=== PATIENT | female | born 1985 | race Two or more races ===

== ENCOUNTER → 2020-08-24 08:20 | Outpatient (BNVA) | payer OTHER, SELFPAY | PROVIDERS: PCP Physician Assistant Medical; Visit Provider Surgery | DX: Z01.818 Encounter for other preprocedural examination (principal); E66.01 Morbid (severe) obesity due to excess calories; R06.02 Shortness of breath; Z68.42 Body mass index [BMI] 45.0-49.9, adult | CPT/HCPCS: 99202 ==

== ENCOUNTER 2020-08-29 16:02 | Outpatient (REF) | payer OTHER, SELFPAY ==
[2020-08-31 14:07] LABS: H Pylori Breath Test NOT DETECTED (NOT DETECTED)
== END 2020-08-29 16:03 | disposition home or self-care (01) ==
LOC: HO.LNP 16:02
PROVIDERS: Surgery; Visit Provider Physician Assistant
DX: Z11.0 Encounter for screening for intestinal infectious diseases (principal)
CPT/HCPCS: 83013; 99211

== ENCOUNTER 2020-09-01 16:21 | Outpatient (REF) | payer OTHER, SELFPAY ==
--- NOTE | ~2020-09-01 | XR_ITS ---
EXAMINATION: XR CHEST CLINICAL INFORMATION: Shortness of breath COMPARISON: None TECHNIQUE: 2 views of the chest were obtained. FINDINGS: No significant abnormality is noted involving the heart, lungs, mediastinum, bony thorax or soft tissues. XR/XR chest 2V IMPRESSION: Unremarkable examination.
== END 2020-09-01 16:22 | disposition home or self-care (01) ==
LOC: HO.LAB 16:21
PROVIDERS: PCP Nurse Practitioner Family; Visit Provider Surgery
DX: R06.02 Shortness of breath (principal)
CPT/HCPCS: 71046

== ENCOUNTER 2020-09-04 06:36 | Outpatient (REF) | payer OTHER, SELFPAY ==
--- NOTE | 2020-09-04 07:17 | ECG_ITS ---
Test Reason : GASTRIC SURGERY Blood Pressure : / mmHG Vent. Rate : 052 BPM Atrial Rate : 052 BPM P-R Int : 176 ms QRS Dur : 078 ms QT Int : 440 ms P-R-T Axes : 049 017 031 degrees QTc Int : 409 ms Sinus bradycardia with sinus arrhythmia Otherwise normal ECG No previous ECGs available Referred By: Jael Prince Electronically Signed By:LORENA NEWSOME MD
[2020-09-04 07:42] LABS: MANUAL DIFF FLAG NO
[2020-09-04 07:46] LABS: Basophils Percent Auto 0.5 % (0-2); Eosinophils Absolute Auto 0.2 X10*3/uL (0.0-0.4); Eosinophils Percent Auto 2.2 % (0-4); Hemoglobin 11.9 g/dl (12.0-16.0); Imm Gran Abs Auto 0.03 X10*3/uL (0.00-0.03); Imm Gran Pct Auto 0.4 % (0.0-0.4); Lymphocytes Absolute Auto 3.1 X10*3/uL (1.2-4.9); Lymphocytes Percent Auto 38.4 % (20-40); Mean Corpuscular HGB Conc 32.2 g/dl (31.0-35.0); Mean Corpuscular Hemoglobin 27.6 pg (27.0-33.0); Mean Corpuscular Volume 85.8 fL (80-98); Mean Platelet Volume 8.7 fL (9.4-12.3); Monocytes Absolute Auto 0.4 X10*3/uL (0.1-1.2); Monocytes Percent Auto 5.2 % (2-11); Neutrophils Absolute Auto 4.3 X10*3/uL (2.0-8.3); Neutrophils Percent Auto 53.3 % (45-73); Platelet Count 332 X10*3/uL (160-400); Red Blood Count 4.31 X10*6/uL (4.20-5.50); Red Cell Distribution Width 13.8 % (11.0-16.0)
[2020-09-04 08:06] LABS: Estimated Average Glucose 103 mg/dL; Hemoglobin A1c % 5.2 %
[2020-09-04 08:07] LABS: Alanine Aminotransferase 9 U/L (0-31); Albumin Level 4.3 g/dL (3.5-5.0); Alkaline Phosphatase 78 U/L (39-117); Anion Gap 14 (12-20); Aspartate Amino Transferase 16 U/L (5-31); Bilirubin Total 0.3 mg/dL (0.0-1.0); Blood Urea Nitrogen 17 mg/dL (9-16); C Reactive Protein 0.34 mg/dL (< or = 0.50); Calcium 9.4 mg/dL (8.4-10.2); Carbon Dioxide 23 mmol/L (22-29); Chloride 106 mmol/L (96-108); Cholesterol 192 mg/dL; Estimated Glomerular Filt Rate > 60; Glucose Fasting 90 mg/dL (60-99); HDL Cholesterol 47 mg/dL; Iron 27 mcg/dL (30-160); LDL Cholesterol Calculated 133 mg/dl; Percent Iron Saturation 7 % (15-50); Potassium 4.2 mmol/L (3.3-5.1); Sodium 139 mmol/L (135-145); Total Iron Binding Capacity 388 mcg/dL (228-428); Total Protein 7.6 g/dL (6.5-8.0); Triglycerides 63 mg/dL; Unsaturated Iron Binding 361 ug/dL
[2020-09-04 08:30] LABS: Thyroid Stimulating Hormone 0.65 uIU/mL (0.32-4.0); Vitamin D 25-OH Total 13.7 ng/mL (>30)
[2020-09-04 09:27] LABS: Vitamin B12 408 pg/mL (200-900)
[2020-09-05 16:52] LABS: Calcium (PTHI) 9.4 mg/dL (8.6-10.2); PTHI 62 pg/mL (14-64)
[2020-09-06 15:46] LABS: Zinc 71 mcg/dL (60-130)
[2020-09-07 17:06] LABS: Vitamin A 34 mcg/dL (38-98)
[2020-09-08 12:46] LABS: Vitamin B1 10 nmol/L (8-30)
== END 2020-09-04 06:37 | disposition home or self-care (01) ==
LOC: HO.LAB 06:36
PROVIDERS: PCP Nurse Practitioner Family; Visit Provider Surgery
DX: Z01.818 Encounter for other preprocedural examination (principal); K91.2 Postsurgical malabsorption, not elsewhere classified; R06.02 Shortness of breath; Z90.3 Acquired absence of stomach [part of]
CPT/HCPCS: 36415; 80053; 80061; 82306; 82607; 83036; 83540; 83970; 84425; 84443; 84590; 84630; 85025; 86140; 93005

== ENCOUNTER → 2020-09-07 08:18 | Outpatient (BNVA) | payer OTHER, SELFPAY | PROVIDERS: Visit Provider Surgery ==

== ENCOUNTER → 2020-09-13 09:46 | Outpatient (BNVA) | payer OTHER, SELFPAY | PROVIDERS: Visit Provider Internal Medicine Cardiovascular Disease | DX: R07.9 Chest pain, unspecified (principal); R06.02 Shortness of breath | CPT/HCPCS: 93005; 99202 ==

== ENCOUNTER → 2020-10-19 16:18 | Outpatient (BNVA) | payer OTHER, SELFPAY | PROVIDERS: Visit Provider Physician Assistant | DX: E66.01 Morbid (severe) obesity due to excess calories (principal); R07.9 Chest pain, unspecified; Z68.41 Body mass index [BMI] 40.0-44.9, adult | CPT/HCPCS: 99212 ==

== ENCOUNTER → 2020-10-24 07:52 | Outpatient (REF) | payer OTHER, SELFPAY ==
--- NOTE | 2020-10-24 07:54 | CA_ITS ---
Acquisition Time: 2020-10-24 07:54:13 Total Exercise Time: 00:06:07 Test Indications: Chest Pain Medications: PRO AIR OMEPRAZOLE GABAPENTIN CLONAZAPAM Protocol: LORI Max HR: 176 BPM 96% of Pred: 183 BPM Max BP: 128/088 mmHG Max Work Load: 7.1 METS Exercise stress test with exercise 6 min 7 sec of Lori protocol, without anginal symptoms, with isolated PACs in recovery, with normotensive response exercise, without EKG changes meeting criteria for ischemia. Test reviewed with Dr Ramírez Referred By: Leon Go Overread By: DAISY SHAY
== END ==
LOC: HO.CARD 07:52
PROVIDERS: Visit Provider Internal Medicine Cardiovascular Disease
DX: R07.9 Chest pain, unspecified (principal)
CPT/HCPCS: 93017

== ENCOUNTER → 2020-10-31 15:58 | Outpatient (BNVA) | payer OTHER, SELFPAY | PROVIDERS: Referring Provider Nurse Practitioner Family; Visit Provider Surgery | DX: E66.01 Morbid (severe) obesity due to excess calories (principal); Z68.41 Body mass index [BMI] 40.0-44.9, adult | CPT/HCPCS: 99212 ==

== ENCOUNTER 2020-11-03 16:17 | Outpatient (REF) | payer OTHER, SELFPAY ==
[2020-11-03 16:56] LABS: Iron 34 mcg/dL (30-160); Percent Iron Saturation 9 % (15-50); Total Iron Binding Capacity 392 mcg/dL (228-428); Unsaturated Iron Binding 358 ug/dL
[2020-11-03 17:16] LABS: Vitamin D 25-OH Total 28.2 ng/mL (>30)
[2020-11-08 13:17] LABS: Vitamin A 36 mcg/dL (38-98)
== END 2020-11-03 16:18 | disposition home or self-care (01) ==
LOC: HO.LAB 16:17
PROVIDERS: PCP Nurse Practitioner Family; Visit Provider Surgery
DX: Z01.818 Encounter for other preprocedural examination (principal); E55.9 Vitamin D deficiency, unspecified; E50.9 Vitamin A deficiency, unspecified; E61.1 Iron deficiency
CPT/HCPCS: 36415; 82306; 83540; 84590

== ENCOUNTER 2020-11-03 16:32 | Emergency (ER) | payer OTHER, SELFPAY ==
--- NOTE | ~2020-11-03 | XR_ITS ---
EXAMINATION: XR CHEST CLINICAL INFORMATION: Chest pain COMPARISON: 09/01/2020 TECHNIQUE: Frontal view of the chest was obtained. FINDINGS: No significant abnormality is noted involving the heart, lungs, mediastinum, bony thorax or soft tissues. XR/XR chest 1V IMPRESSION: Unremarkable examination.
[2020-11-03 16:34] VITALS: BP 122/73; PULSE 73; RESP 18; TEMP 36.3; O2SAT 100; BMI 40.6
--- NOTE | 2020-11-03 16:38 | ECG_ITS ---
Test Reason : CHEST PAIN Blood Pressure : / mmHG Vent. Rate : 061 BPM Atrial Rate : 061 BPM P-R Int : 180 ms QRS Dur : 078 ms QT Int : 412 ms P-R-T Axes : 048 009 019 degrees QTc Int : 414 ms Sinus rhythm with Premature supraventricular complexes Otherwise normal ECG When compared with ECG of 04-SEP-2020 06:26, Premature supraventricular complexes are now Present Referred By: Generic ED Physician Electronically Signed By:Leon Go
--- NOTE | 2020-11-03 18:39 | ED.CHESTPAIN ---
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 had a stress test on 10/24 which was negative comes here for pain started again today localized to left chest increases on palpation and movements going to the left trapezius area tender to touch no shortness of breath Related Data Home Medications Medication Instructions Recorded Confirmed acetaminophen 325 mg capsule 325 mg PO QID PRN 08/24/20 10/31/20 albuterol sulfate 90 mcg/actuation 2 puff INHALATION Q6H PRN 08/24/20 10/31/20 aerosol inhaler clonazepam 0.5 mg tablet 0.25 mg PO BEDTIME 08/24/20 10/31/20 ibuprofen 600 mg tablet 600 mg PO Q8H PRN 08/24/20 10/31/20 zolpidem 5 mg tablet 5 mg PO BEDTIME PRN 08/24/20 10/31/20 omeprazole 10 mg capsule,delayed 10 mg PO DAILY PRN 10/31/20 10/31/20 release Previous Rx's Medication Instructions Recorded vitamin A palmitate 10,000 unit 20,000 unit PO DAILY 30 Days #60 09/08/20 tablet tab tramadol 50 mg PO Q6H PRN #20 tab 11/03/20 Allergies Allergy/AdvReac Type Severity Reaction Status Date / Time shellfish derived Allergy Severe Anaphylaxis Verified 11/03/20 16:33 Review of Systems Review of Systems: Constitutional : No Weight loss, No Fever, No Chills ENT/Mouth : No sore throat, No Rhinorrhea Eyes: No Eye Pain, No Swelling Cardiovascular : + Chest Pain, no palpitations Respiratory : No Cough, No Sputum, no shortness of breath Gastrointestinal : no Nausea, No Vomiting, No Diarrhea, No abdominal Pain, no black stools Genitourinary : No Dysuria, No Urinary Frequency Musculoskeletal : No joint pain, No Myalgias, No Joint Swelling Skin : No Skin Lesions, No rash Neuro : No Weakness, No Numbness, No Dizziness, No Headache Psych : No Anxiety/Panic, No Depression Heme/Lymph: No Bruising, No Lymphadenopathy Endocrine : No Polyuria, No Polydipsia All other systems reviewed and are negative PMFSH Past Medical History Medical History Anxiety Asthma Depression Insomnia Migraines Morbid obesity due to excess calories Pre-diabetes Surgical History History of tubal ligation Hx of section Hx of cholecystectomy Family History Family History Mother Cancer Hypertension Father No problems noted. Brother No problems noted. Brother Heart disease Sister No problems noted. Sister No problems noted. Son Asthma Son Asthma Daughter Asthma Social History Social History Alcohol intake: current Alcohol intake frequency: holidays/special occasions only Patient Tobacco Use Status: Former Tobacco user Years Smoked: 20 Advance Directives: Yes Advance Directives Information Provided: Yes Advance Directives on File: No Patient : No Physical Exam Vital Signs: Vital Signs: Last Vital Signs Temp 97.4 F 11/03/20 16:34 Pulse 73 11/03/20 16:34 Resp 18 11/03/20 16:34 BP 122/73 11/03/20 16:34 Pulse Ox 100 11/03/20 16:34 Body Mass Index 40.6 Appearance: Alert. Oriented X3. No acute distress. Eyes: PERRLA, No Nystagmus ENT: Pharynx normal. Oral Mucosa moist Neck: Normal inspection. Neck supple. CVS: Normal heart rate and rhythm. Pulses normal. Left chest wall tenderness left trapezius tenderness Respiratory: No respiratory distress. Equal air entry bilateral, no wheezing/rales/rhonchi Abdomen: Soft and nontender. Bowel sounds are present, no mass palpable, no CVA tenderness Skin: Skin warm and dry. Normal skin color. Normal skin turgor. Extremities: No lower extremity edema. No calf tenderness Neuro: Oriented X 3. No motor deficit. No sensory deficit. MDM - Chest Pain ECG Data ECG #1: Attestation: I personally reviewed and interpreted this ECG as follows: Interpretation: Heart rate 61 beats per minute few PACs no acute ST T wave changes normal interval normal axis impression no acute ischemia Discharge Plan Discharge Clinical Impression: Musculoskeletal chest pain Patient Disposition: Home, Self-Care Instructions: Musculoskeletal Pain (ED) Additional Instructions: Your chest pain is not from the heart is likely musculoskeletal take ibuprofen/tramadol for pain Prescriptions: New tramadol 50 mg tablet 50 mg PO Q6H PRN (Reason: pain) Qty: 20 RF: 0 No Action vitamin A palmitate 10,000 unit tablet 20,000 unit PO DAILY 30 Days Qty: 60 RF: 0 clonazepam 0.5 mg tablet 0.25 mg PO BEDTIME RF: 0 zolpidem [Ambien] 5 mg tablet 5 mg PO BEDTIME PRNRF: 0 ibuprofen 600 mg tablet 600 mg PO Q8H PRNRF: 0 acetaminophen [Tylenol] 325 mg capsule 325 mg PO QID PRNRF: 0 albuterol sulfate [ProAir HFA] 90 mcg/actuation HFA aerosol inhaler 2 puff inhalation Q6H PRNRF: 0 omeprazole 10 mg capsule,delayed release(DR/EC) 10 mg PO DAILY PRNRF: 0
[2020-11-03] MEDS: traMADoL HCL 50 MG TABLET PO (19:03)
== END 2020-11-03 19:10 | disposition home or self-care (01) ==
PROVIDERS: Emergency Provider Internal Medicine; PCP Nurse Practitioner Family
DX: R07.89 Other chest pain (principal); J45.909 Unspecified asthma, uncomplicated; Z79.899 Other long term (current) drug therapy
CPT/HCPCS: 71045; 93005; 99283

== ENCOUNTER → 2020-11-06 15:01 | Outpatient (BNVA) | payer OTHER, SELFPAY | PROVIDERS: PCP Nurse Practitioner Family; Visit Provider Internal Medicine Cardiovascular Disease | DX: R07.9 Chest pain, unspecified (principal) | CPT/HCPCS: 99212 ==

== ENCOUNTER → 2020-11-23 16:02 | Outpatient (BNVA) | payer OTHER, SELFPAY | PROVIDERS: Referring Provider Nurse Practitioner Family; Visit Provider Surgery | DX: E66.9 Obesity, unspecified (principal); Z68.39 Body mass index [BMI] 39.0-39.9, adult | CPT/HCPCS: 99212 ==

== ENCOUNTER 2020-12-21 15:57 | Outpatient (REF) | payer OTHER, SELFPAY ==
[2020-12-26 18:26] LABS: Vitamin A 36 mcg/dL (38-98)
== END 2020-12-21 15:58 | disposition home or self-care (01) ==
LOC: HO.LAB 15:57
PROVIDERS: Visit Provider Surgery
DX: Z01.818 Encounter for other preprocedural examination (principal); E50.9 Vitamin A deficiency, unspecified; E66.9 Obesity, unspecified; Z68.38 Body mass index [BMI] 38.0-38.9, adult
CPT/HCPCS: 36415; 84590; 99212

== ENCOUNTER → 2020-12-27 08:09 | Outpatient (BNVA) | payer OTHER, SELFPAY | PROVIDERS: Visit Provider Dietitian, Registered | DX: E66.9 Obesity, unspecified (principal); Z68.38 Body mass index [BMI] 38.0-38.9, adult | CPT/HCPCS: 97802 ==

== ENCOUNTER → 2020-12-29 15:57 | Outpatient (BNVA) | payer OTHER, SELFPAY | PROVIDERS: Visit Provider Surgery ==

== ENCOUNTER → 2021-01-25 15:58 | Outpatient (BNVA) | payer OTHER, SELFPAY | PROVIDERS: Referring Provider Physician Assistant Medical; Visit Provider Surgery | DX: Z01.818 Encounter for other preprocedural examination (principal); E66.9 Obesity, unspecified; Z68.38 Body mass index [BMI] 38.0-38.9, adult | CPT/HCPCS: 99212 ==

== ENCOUNTER → 2021-01-26 08:58 | Outpatient (BNVA) | payer OTHER, SELFPAY | PROVIDERS: Visit Provider Physician Assistant ==

== ENCOUNTER 2021-01-31 07:23 | Inpatient (IN) | payer OTHER, SELFPAY ==
--- NOTE | 2021-01-26 11:13 | ECG_ITS ---
Test Reason : preop Blood Pressure : / mmHG Vent. Rate : 060 BPM Atrial Rate : 060 BPM P-R Int : 170 ms QRS Dur : 078 ms QT Int : 402 ms P-R-T Axes : 062 023 048 degrees QTc Int : 402 ms Normal sinus rhythm with sinus arrhythmia Normal ECG When compared with ECG of 03-NOV-2020 18:05, Premature supraventricular complexes are no longer Present Referred By: Jael Prince Electronically Signed By:CRISTOPHER BABIN
[2021-01-26 12:10] LABS: MANUAL DIFF FLAG NO
[2021-01-26 12:14] LABS: Basophils Percent Auto 0.4 % (0-2); Eosinophils Absolute Auto 0.2 X10*3/uL (0.0-0.4); Eosinophils Percent Auto 1.9 % (0-4); Hematocrit 36.3 % (37-47); Hemoglobin 11.6 g/dl (12.0-16.0); Imm Gran Abs Auto 0.03 X10*3/uL (0.00-0.03); Imm Gran Pct Auto 0.3 % (0.0-0.4); Lymphocytes Absolute Auto 3.8 X10*3/uL (1.2-4.9); Lymphocytes Percent Auto 40.3 % (20-40); Mean Corpuscular Hemoglobin 27.8 pg (27.0-33.0); Mean Corpuscular Volume 87.1 fL (80-98); Mean Platelet Volume 8.6 fL (9.4-12.3); Monocytes Absolute Auto 0.5 X10*3/uL (0.1-1.2); Monocytes Percent Auto 5.5 % (2-11); Neutrophils Absolute Auto 4.8 X10*3/uL (2.0-8.3); Neutrophils Percent Auto 51.6 % (45-73); Platelet Count 309 X10*3/uL (160-400); Red Blood Count 4.17 X10*6/uL (4.20-5.50); Red Cell Distribution Width 13.9 % (11.0-16.0); White Blood Count 9.4 X10*3/uL (4.8-10.8)
[2021-01-26 12:29] LABS: Prothrombin Time 11.4 SEC (9.9-13.0)
[2021-01-26 12:32] LABS: Partial Thromboplastin Time 31.7 SEC (24.1-38.0)
[2021-01-26 13:27] LABS: Albumin Level 4.1 g/dL (3.5-5.0); Anion Gap 11 (12-20); Blood Urea Nitrogen 10 mg/dL (9-16); Calcium 9.5 mg/dL (8.4-10.2); Carbon Dioxide 26 mmol/L (22-29); Chloride 103 mmol/L (96-108); Estimated Glomerular Filt Rate > 60; Glucose Random 85 mg/dL (60-115); Potassium 3.8 mmol/L (3.3-5.1); Sodium 136 mmol/L (135-145)
[2021-01-26 14:19] LABS: Appearance Urine CLEAR; Color Urine YELLOW; Glucose Urine UA NEG (NEG); Leukocyte Esterase Urine NEG (NEG); Nitrite Urine NEG (NEG); Specific Gravity - Urine >= 1.030 (1.005-1.025); Urine Blood NEG (NEG); Urine Ketones NEG (NEG); Urine Protein NEG (NEG-TRACE)
[2021-01-26 14:22] LABS: UPreg QC Valid YES; Urine Pregnancy NEGATIVE (NEGATIVE)
[2021-01-29 09:14] VITALS: BMI 38.2
--- NOTE | 2021-01-30 08:54 | HO.ANESPROP2 ---
Documented by User: Leslie Shirley NP 01/30/21 08:54 [facility] Active Problems Active Problems: All Active Problems (Updated 01/29/21 @ 09:13 by Juanita Stern RN) Preoperative examination (Acute) Shortness of breath (Acute) Body mass index (BMI) of 45.0-49.9 in adult (Acute) Iron deficiency (Acute) Vitamin D deficiency (Acute) Chest pain (Acute) BMI 40.0-44.9, adult (Acute) Vitamin A deficiency (Acute) BMI 39.0-39.9,adult (Acute) Obesity (Acute) BMI 38.0-38.9,adult (Acute) Morbid obesity due to excess calories (Acute) Depression (Acute) Anxiety (Acute) Past Medical History Medical History (Updated 01/29/21 @ 09:13 by Juanita Stern, ISABEL) Anxiety Asthma COVID-19 vaccine series completed Depression Insomnia Migraines Morbid obesity due to excess calories Pre-diabetes Family History Family History Mother Cancer Hypertension Father No problems noted. Brother No problems noted. Brother Heart disease Sister No problems noted. Sister No problems noted. Son Asthma Son Asthma Daughter Asthma Surgical History Surgical History History of tubal ligation Hx of section Hx of cholecystectomy Social History Social History Are you a primary health and social care teacher to a significant other at home: No Do you presently have visiting nurse or other home services: No Alcohol intake: former Patient Tobacco Use Status: Former Tobacco user Quit Date: 4 yrs ago Tobacco use type: Cigarette Years Smoked: 20 Use of substances other than those prescribed or required for medical reasons: No Have you been hit, kicked, punched, or otherwise hurt by someone within the past year? If so, by whom?: No Are you DNR?: No Advance Directives: No Advance Directives Information Provided: No Advance Directives on File: No Recently lost weight without trying: No How much weight loss: 34pounds or more Eating poorly because of decreased appetite: No Nutrition screen score: 4 Nutrition Risks: No Nutritional Risk Patient : No FDLMP: 01/18/21 : No Meds Allergies Allergy/AdvReac Type Severity Reaction Status Date / Time shellfish derived Allergy Severe Anaphylaxis Verified 01/29/21 09:14 Home Medications Medication Instructions Recorded Confirmed Last Taken Type acetaminophen 325 mg capsule 325 mg PO QID PRN 08/24/20 01/29/21 Unknown History (Tylenol) albuterol sulfate 90 mcg/actuation 2 puff INHALATION Q6H PRN 08/24/20 01/29/21 Unknown History aerosol inhaler (ProAir HFA) clonazepam 0.5 mg tablet 0.25 mg PO BEDTIME 08/24/20 01/29/21 Unknown History zolpidem 5 mg tablet (Ambien) 5 mg PO BEDTIME PRN 08/24/20 01/29/21 Unknown History propranolol 10 mg tablet 10 mg PO BID PRN 01/25/21 01/29/21 Unknown History Exam Exam Date and Time: January 30, 2021 0854 Height,Weight and Vital Signs: Height 5 ft 4 in Weight 101.151 kg Pertinent Lab Results Pertinent Lab Results: Laboratory Tests 01/26/21 01/26/21 01/26/21 11:11 11:11 11:11 WBC 9.4 RBC 4.17 L Hgb 11.6 L Hct 36.3 L MCV 87.1 MCH 27.8 MCHC 32.0 RDW 13.9 Plt Count 309 MPV 8.6 L Immature Gran % (Auto) 0.3 Neut % (Auto) 51.6 Lymph % (Auto) 40.3 H [place] % (Auto) 5.5 Eos % (Auto) 1.9 Baso % (Auto) 0.4 Lymph # (Auto) 3.8 [place] # (Auto) 0.5 Eos # (Auto) 0.2 Baso # (Auto) 0.0 Abs Immat Gran (auto) 0.03 Absolute Neuts (auto) 4.8 Absolute Nucleated RBC 0.000 Nucleated RBC % (auto) 0.0 PT 11.4 INR 1.0 APTT 31.7 Sodium Potassium Chloride Carbon Dioxide Anion Gap BUN Creatinine Estim Creat Clear Calc Estimated GFR Random Glucose Calcium Albumin Urine Color YELLOW Urine Appearance CLEAR Urine pH 6.0 Ur Specific [place] >= 1.030 H Urine Protein NEG Urine Glucose (UA) NEG Urine Ketones NEG Urine Blood NEG Urine Nitrite NEG Ur Leukocyte Esterase NEG Urine Test Blood Type Antibody Screen 0901/26/21 01/26/21 11:11 11:11 11:11 WBC RBC Hgb Hct MCV MCH MCHC RDW Plt Count MPV Immature Gran % (Auto) Neut % (Auto) Lymph % (Auto) [place] % (Auto) Eos % (Auto) Baso % (Auto) Lymph # (Auto) [place] # (Auto) Eos # (Auto) Baso # (Auto) Abs Immat Gran (auto) Absolute Neuts (auto) Absolute Nucleated RBC Nucleated RBC % (auto) PT INR APTT Sodium 136 Potassium 3.8 Chloride 103 Carbon Dioxide 26 Anion Gap 11 L BUN 10 Creatinine 0.80 Estim Creat Clear Calc TNP Estimated GFR > 60 Random Glucose 85 Calcium 9.5 Albumin 4.1 Urine Color Urine Appearance Urine pH Ur Specific [place] Urine Protein Urine Glucose (UA) Urine Ketones Urine Blood Urine Nitrite Ur Leukocyte Esterase Urine Test NEGATIVE Blood Type A Positive Antibody Screen NEGATIVE Narrative Narrative: EKG 01/2021 Vent. Rate : 060 BPM ? ? Atrial Rate : 060 BPM ?? P-R Int : 170 ms? QRS Dur : 078 ms ? ? QT Int : 402 ms ? ? ? P-R-T Axes : 062 023 048 degrees ?? QTc Int : 402 ms ? Normal sinus rhythm with sinus arrhythmia Normal ECG When compared with ECG of 03-NOV-2020 18:05, Premature supraventricular complexes are no longer Present ? Exercise Stress 10/2020 Exercise stress test with exercise 6 min 7 sec of Rangel protocol, without ?anginal symptoms, with isolated PACs in recovery, with normotensive response ?exercise, without EKG changes meeting criteria for ischemia. Test reviewed with ?Dr Ramírez Assessment and Plan Assessment Anesthesia Assessment: Chart Reviewed Documented by User: Connor Lamas MD 01/31/21 09:00 [facility] Past Medical History Medical History (Updated 01/29/21 @ 09:13 by Juanita Stern RN) Anxiety Asthma COVID-19 vaccine series completed Depression Insomnia Migraines Morbid obesity due to excess calories Pre-diabetes Family History Family History Mother Cancer Hypertension Father No problems noted. Brother No problems noted. Brother Heart disease Sister No problems noted. Sister No problems noted. Son Asthma Son Asthma Daughter Asthma Family history of problems with anesthesia: No Surgical History Surgical History History of tubal ligation Hx of section Hx of cholecystectomy History of Problems with Anesthesia: No Social History Social History Are you a primary health and social care teacher to a significant other at home: No Do you presently have visiting nurse or other home services: No Alcohol intake: former Patient Tobacco Use Status: Former Tobacco user Quit Date: 4 yrs ago Tobacco use type: Cigarette Years Smoked: 20 Use of substances other than those prescribed or required for medical reasons: No Have you been hit, kicked, punched, or otherwise hurt by someone within the past year? If so, by whom?: No Are you DNR?: No Advance Directives: No Advance Directives Information Provided: No Advance Directives on File: No Recently lost weight without trying: No How much weight loss: 34pounds or more Eating poorly because of decreased appetite: No Nutrition screen score: 4 Nutrition Risks: No Nutritional Risk Patient : No FDLMP: 01/18/21 : No Meds Allergies Allergy/AdvReac Type Severity Reaction Status Date / Time shellfish derived Allergy Severe Anaphylaxis Verified 01/29/21 09:14 Home Medications Medication Instructions Recorded Confirmed Last Taken Type acetaminophen 325 mg capsule 325 mg PO QID PRN 08/24/20 01/29/21 Unknown History (Tylenol) albuterol sulfate 90 mcg/actuation 2 puff INHALATION Q6H PRN 08/24/20 01/29/21 Unknown History aerosol inhaler (ProAir HFA) clonazepam 0.5 mg tablet 0.25 mg PO BEDTIME 08/24/20 01/29/21 Unknown History zolpidem 5 mg tablet (Ambien) 5 mg PO BEDTIME PRN 08/24/20 01/29/21 Unknown History propranolol 10 mg tablet 10 mg PO BID PRN 01/25/21 01/29/21 Unknown History Assessment and Plan Assessment Anesthesia Assessment: Anesthesia Plan Discussed Final Anesthetic Review Family History of Problems with Anesthesia: No History of Problems with Anesthesia: No NPO: Yes ASA Class: II Final Preanesthetic Review: No Changes in Pt Med Stat, Meds/Allgs Chart Reviewed, Consent Obtained/Reviewed and Anes Risks/Benef Reviewed Patient Risk: Intermediate Procedure Risk: Intermediate Assessment/Block/Sedation in SS: Assess/Block/Sedation-SS Anesthetic Plan Anesthetic Plan: GA and Agree w/ Assess. and Plan Disposition: Standard PACU
--- NOTE | 2021-01-30 16:33 | MHC.SHP ---
Pre-Procedural Eval Section A Date of Service: 01/30/21 Section B Chief Complaint: Obesity Allergies: Allergies Allergy/AdvReac Type Severity Reaction Status Date / Time shellfish derived Allergy Severe Anaphylaxis Verified 01/29/21 09:14 Plan I have reviewed the history and physical and performed a pertinent physical examination on my patient. No changes have occurred unless specified.
[2021-01-31] VITALS (15 sets, daily range): BP systolic 121–133; BP diastolic 60–85; PULSE 60–82; RESP 15–22; TEMP 36.1–36.7; O2SAT 98–100
[2021-01-31] MEDS: Lactated Ringers 1,000 ML 100 ML IVCONT ×3 (08:10→22:03)
[2021-01-31 08:18] LABS: COVID-19 Test Negative (Negative); IDNOW Serial# 08D9AD1C
--- NOTE | 2021-01-31 09:42 | P.OP_ITS ---
Operative Note Operative Note Date of Service: 01/31/21 Narrative: Patient was brought into the operating room and placed on the operating room table in the supine position. General anesthesia was induced. Normal DVT prophylaxis was instituted and the patient received 2 grams of cefotetan preoperatively. The abdomen was then prepped and draped in the normal sterile fashion. A safety time-out was performed. A mixture of 1% lidocaine with epinephrine and ?% Marcaine plain was used to an esthetize the planned incision site in the left upper quadrant. A #11 scalpel was used to make a 5 mm left upper quadrant transverse incision through which a veress needle was placed. Three pops were heard going through the fascia. A saline drop test was used to confirm that the veress needle was intraabdominal. An optiview technique was then used to place a 5mm port in the left upper quadrant. A 5 mm 30 degree laproscope was then placed through this port and the abdominal cavity was surveyed and was normal. The patient was placed in reverse Trendelenburg positioning. A rebecca liver retractor was then placed in the subxyphoid position and it was used to hold up the left lobe of the liver to the abdominal wall. This was secured to the bed using the liver retractor hassan. A PEYMAN block was then performed for pain control on the right side of the abdomen. A 5 mm port was placed in the right upper quadrant near the falciform ligament. A 12 mm port was then placed in the mid epigastrium. One additional 5 mm port was placed in the left upper quadrant just to the left of the placement of the first port. I then performed a PEYMAN block on the left side of the abdomen. I then removed the epigastric fat pad; there was a small anterior hiatal hernia noted. I reapproximated the left and right crura with a total of 2 stitches of 2-0 ethibond and a laparoscopic knot pusher. There was no residual hiatal hernia. I then opened up the angle of His. We then gained entry into the lesser sac about 4-5 cm from the pylorus. I had anesthesia place a 34 [place] orogastric tube into the distal antrum to use as a sizing tool for gastric pouch size. I divided the short gastric vessels up to the angle of His. We then started the creation of the gastric pouch by firing a 60 mm purple load endostapler up the stomach about 4-5 cm from the pylorus. We completed the creation of the gastric pouch using a total of 4 firings of a 60 mm purple load stapler. We had anesthesia remove the orogastric tube, then we clamped across the distal antrum using a fired 60 mm endostapler. We flattened the patient and then instilled normal saline surrounding the newly created staple line. I then performed an on-table endoscopy. I passed the gastroscopy into the posterior oropharynx and down the esophagus evaluating the esophageal mucosa which was normal. There was no evidence of hiatal hernia. I passed the gastroscope into the gastric pouch and insufflated the gastric pouch. There was healthy pink mucosa and no evidence of active bleeding. There was no evidence of leak on laparoscopy. I desufflated the gastric pouch and removed the endoscope. I removed the endostapler from the abdomen and suctioned the fluid from the left upper quadrant. I then removed the partial gastrectomy specimen through the epigastric 12 mm port site. I reapproximated the 12 mm port using a 0 maxon suture with a laparoscopic suture passer. I instilled local anesthetic into the fascial closure site and tied the suture down at a pressure of 8-10 mm of Hg. There was no residual fascial defect. We removed the liver retractor and the left upper quadrant 5 mm ports under direct visualization. There was no evidence of any active bleeding. I desufflated the abdomen through the last remaining port and removed the laparoscope and 5 mm port. We reapproximated all incisions with a 4-0 monocryl subcuticular stitch. We cleaned and dried the abdominal skin and applied dermabond skin glue. All count were correct at the end of the case. The patient was awake and in stable condition prior to extubation and transfer to the recovery room.
--- NOTE | 2021-01-31 09:42 | PM.OP ---
Brief Operative Note Date of Service: 01/31/21 Pre-op diagnosis: Class 2 obesity, BMI 38.3 Post-op diagnosis: other (Same and hiatal hernia) Procedure: Laparoscopic sleeve gastrectomy, hiatal hernia repair, Cleo block, and intraoperative endoscopy Surgeon: Jael Prince MD Anesthesia: GETA Was an Patrol Police Sergeant used for this Procedure?: No Estimated blood loss (mL): 10 Pathology: other (Partial gastrectomy) Condition: stable Disposition: PACU
--- NOTE | 2021-01-31 09:43 | PM.PNGS ---
Subjective Subjective Date of Service: 02/01/21 Interval history: This is a 35-year-old lady on postoperative day 1. Status post laparoscopic sleeve gastrectomy and hiatal hernia repair doing well. Patient has been up and ambulating use incentive spirometer. Vital signs are within normal limits as well as blood work for postoperative day 1. Patient is tolerating stage II diet without difficulty. Physical Exam Vital Signs: Vital Signs: Last Vital Signs Temp 98.1 F 01/31/21 07:47 Pulse 67 01/31/21 07:47 Resp 16 01/31/21 07:47 BP 121/60 01/31/21 07:47 Pulse Ox 99 01/31/21 07:47 Body Mass Index 38.2 Const: General: cooperative, comfortable and no acute distress GI: Other: Abdomen is soft nondistended mild appropriate incisional tenderness. Incisions are clean dry intact with Dermabond in place. There is no erythema or drainage or ecchymosis. Extrem: Other: Bilateral lower extremities are warm well-perfused without edema or tenderness to palpation. Procedures Date of Service Date of Service: 02/01/21 Progress Note: A&P Assessment and plan (1) Status post laparoscopic sleeve gastrectomy: Status: Acute Assessment and Plan: This is a 35-year-old lady doing well on postoperative day 1. Status post laparoscopic sleeve gastrectomy and hiatal hernia repair. Patient will be advanced to stage III bariatric diet. Once she is tolerating the diet she will be discharged home to follow up with me as an outpatient in 2 weeks time frame. (2) History of repair of hiatal hernia: Status: Acute (3) Obesity: Status: Acute (4) BMI 38.0-38.9,adult: Status: Acute Fall Risk Details Current Medications: Current Medications Albuterol Sulfate (Albuterol Sulfate (0.083%) 2.5 Mg/3 Ml Vial.Neb) 2.5 mg INHALE ONCE PRN PRN Reason: Shortness of Breath/Wheezing Fentanyl (Fentanyl Citrate/Pf 100 Mcg/2 Ml Vial) 50 mcg IVPUSH Q5M PRN; Protocol PRN Reason: Pain, Moderate (Pain Scale 4-6 Hydromorphone HCl (Hydromorphone Hcl 0.5 Mg/0.5 Ml Syringe) 0.5 mg IVPUSH Q5M PRN; Protocol PRN Reason: Pain, Severe (Pain Scale 7-10) Lactated Ringer's (Lr) 1,000 mls @ 100 mls/hr IVCONT .Q10H YENI Last Admin: 01/31/21 08:10 Dose: 100 mls/hr Documented by: Promethazine HCl 6.25 mg/ (Sodium Chloride) 50.25 mls @ 201 mls/hr IV ONCE PRN PRN Reason: Nausea and Vomiting Ondansetron HCl (Ondansetron Hcl 4 Mg/2 Ml Vial) 4 mg IVPUSH ONCE PRN PRN Reason: Nausea and Vomiting Oxycodone HCl (Oxycodone Hcl Immed Release 5 Mg Tablet) 10 mg PO ONCE PRN PRN Reason: Pain, Severe (Pain Scale 7-10) Time Spent With Patient Time: Total time spent is greater than 50% in coordination of care (as documented) at patient's floor/unit and/or counseling patient: Time with patient: less than 15 minutes Quality Stroke Does the patient have a stroke diagnosis?: No VTE Prior VTE?: No VTE Risk Level:: Surgical - moderate VTE Device Contraindication: N/A - Device Ordered VTE Drug Contraindication: Treatment Not Indicated
--- NOTE | 2021-01-31 09:49 | P.DS_ITS ---
DS: Providers Provider Date of Service: 01/31/21 Date of admission: 01/31/21 07:23 Date of discharge: 02/01/21 Primary care physician: DINO Escamilla Admitting clinician: Jael Prince Attending physician on admission: Jael Prince Attending physician on discharge: Jael Prince Discharging clinician: Jael Prince DS: Diagnosis Discharge Diagnosis (1) Status post laparoscopic sleeve gastrectomy: Status: Acute (2) Obesity: Status: Acute (3) BMI 38.0-38.9,adult: Status: Acute (4) History of repair of hiatal hernia: Status: Acute DS: Summary Hospital Course Hospital Course: This is a 35-year-old lady who was admitted through same-day surgery for a laparoscopic sleeve gastrectomy for weight management. Patient did well during surgery and postoperatively was sent to the surgical floor for overnight monitoring. Patient was started on stage II bariatric diet which she tolerated well. Patient was up and ambulating using the incentive spirometer as well. On postoperative day 1. The patient was noted to be doing well and was advanced to a stage III diet. Her vital signs and blood were within normal limits for postoperative day 1.. Patient was then discharged home once tolerating stage III diet. Time Spent with Patient Time attestation: Total time spent providing and/or coordinating discharge services: Discharge coordination time: Less than 30 minutes Quality: Stroke Does the patient have a stroke diagnosis?: No Physical Exam Vital Signs: Vital Signs: Last Vital Signs Temp 98.1 F 01/31/21 07:47 Pulse 67 01/31/21 07:47 Resp 16 01/31/21 07:47 BP 121/60 01/31/21 07:47 Pulse Ox 99 01/31/21 07:47 Body Mass Index 38.2 DS: Data Data Completed and Pending Labs on day of discharge: Laboratory Results - last 24 hr 01/31/21 07:24 COVID-19 ([facility]) Negative COVID-19 Clin Com See Note Discharge Plan Discharge Patient Disposition: Home, Self-Care Discharge Diagnosis: Class 2 obesity, BMI 38.3, status post sleeve gastrectomy and hiatal hernia repair Referrals: Hilda Dia PA [Primary Care Provider] - 1 Week Discharge Medications: Continued acetaminophen [Tylenol Extra Strength] 500 mg tablet 1,000 mg PO Q6H PRN (Reason: pain) Qty: 30 RF: 1 famotidine [Pepcid AC] 20 mg tablet 20 mg PO DAILY Qty: 30 RF: 1 simethicone [Gas Relief (simethicone)] 80 mg tablet,chewable 80 mg PO TID-QID PRN (Reason: abdominal distention) Qty: 30 RF: 1 ondansetron HCl [Zofran] 4 mg tablet 4 mg PO Q6H PRN (Reason: nausea and vomiting) Qty: 30 RF: 1 docusate sodium [Colace] 100 mg capsule 100 mg PO BID Qty: 30 RF: 1 propranolol 10 mg tablet 10 mg PO BID PRN (Reason: migraine headache) RF: 0 clonazepam 0.5 mg tablet 0.25 mg PO BEDTIME RF: 0 zolpidem [Ambien] 5 mg tablet 5 mg PO BEDTIME PRN (Reason: Sleep) RF: 0 acetaminophen [Tylenol] 325 mg capsule 325 mg PO QID PRN (Reason: Pain) RF: 0 albuterol sulfate [ProAir HFA] 90 mcg/actuation HFA aerosol inhaler 2 puff inhalation Q6H PRN (Reason: Wheezing) RF: 0 Discontinued vitamin A palmitate 10,000 unit tablet 20,000 unit PO DAILY 30 Days Qty: 60 RF: 0 Discharge Orders: Discharge Order (Routine); Ordered 02/01/21 Ordered By: Jael Prince Activity on Discharge: No heavy lifting Stand Alone Forms: Patient Portal Discharge page Activity Restrictions/Additional Instructions: No lifting greater than 5 lbs for the next 4 weeks. [address] driving within 24 hours of taking narcotic pain medications. If you do not move your bowels in the next 2 days, please take milk of magnesia over the counter or MiraLax. Please follow the post op diet and do not advance your diet until you are seen in the office in about 2 weeks. Please walk around your home every hour or two to prevent blood clots from forming in your legs. You do not need to wake from sleeping to walk. Please sleep in a bed or couch to prevent kinking at the hips and knees. Please take your incentive spirometer (your lung director retail brand development) home with you and use it for the next few days to prevent pneumonias. You may shower, no hot tubs, baths or swimming pools. Please call the office with any questions or concerns such as increasing abdominal pain, fever, chills, shortness of breath, chest pain, leg pain or swelling, or redness or drainage from your incisions. Please stay on stage 3 diet which includes sugar free clear liquids such as ice pops and jello and broth and crystal light. Avoid all carbonation. Please drink 2-3 protein shakes with at least 20-30 grams of protein daily or 2 of the celebrate 4:1 shakes which can be purchased in our office in addition to 1 other protein shake of your choice. celebrate shakes have all of the bariatric vitamins you need if you consume these shakes. If you are drinking other protein shakes, you will need to order the bariatric vitamin Opurity chewable online, or use the celebrate bariatric vitamin and an additional celebrate calcium daily which will provide all the vitamins you need. You may take the bariatric capsule vitamin in about 1 month. Please make sure you are consuming at least 40- 60 ounces of water in addition to your 2-3 protein shakes daily. You do not need to use the medicine cups to drink year shakes or water following discharge. Just drink slowly in order to ensure that she consume all of your liquids for the day. The medicine cups were only to teach you to drink slowly. They are not required at home. Do not hesitate to contact the office with any questions. Care Plan Goals: Achievement of BMI of 25 Health Concerns: Class 2 obesity Plan of Treatment: Status post sleeve gastrectomy Assessment: Patient is doing well
[2021-01-31] MEDS: cefoTEtan disodium 2 GM in 0.9 % Sodium Chloride 50 ML IV ×2 (10:12→21:56)
[2021-01-31] MEDS: ondansetron HCL 4 MG/2 ML VIAL IVPUSH (11:48)
[2021-01-31] MEDS: fentaNYL citrate/PF 100 MCG/2 ML VIAL 50 MCG IVPUSH ×2 (11:50→11:59)
[2021-01-31] MEDS: Metoclopramide HCl 10 MG/2 ML VIAL IVPUSH (11:53)
[2021-01-31] MEDS: Famotidine/PF 20 MG/2 ML VIAL IVPUSH ×2 (11:55→20:43)
[2021-01-31] MEDS: HYDROmorphone HCl 0.5 MG/0.5 ML SYRINGE IVPUSH ×4 (12:13→20:43)
[2021-01-31] MEDS: clonazePAM 0.5 MG TABLET 0.25 MG PO (20:44)
[2021-02-01] VITALS: BP 130/80; PULSE 71; RESP 18; TEMP 36.2; O2SAT 99
[2021-02-01 00:05] VITALS: RESP 18
[2021-02-01] MEDS: HYDROmorphone HCl 0.5 MG/0.5 ML SYRINGE IVPUSH ×2 (00:05→06:16)
[2021-02-01 04:00] VITALS: BP 141/82; PULSE 56; RESP 16; TEMP 36.3; O2SAT 100
[2021-02-01 06:09] LABS: Hematocrit 32.3 % (37-47); Hemoglobin 10.6 g/dl (12.0-16.0); Mean Corpuscular HGB Conc 32.8 g/dl (31.0-35.0); Mean Corpuscular Hemoglobin 28.2 pg (27.0-33.0); Mean Corpuscular Volume 85.9 fL (80-98); Mean Platelet Volume 8.7 fL (9.4-12.3); Platelet Count 262 X10*3/uL (160-400); Red Blood Count 3.76 X10*6/uL (4.20-5.50); Red Cell Distribution Width 13.9 % (11.0-16.0); White Blood Count 14.6 X10*3/uL (4.8-10.8)
[2021-02-01] MEDS: Lactated Ringers 1,000 ML 100 ML IVCONT (06:18)
[2021-02-01 06:25] LABS: Anion Gap 13 (12-20); Blood Urea Nitrogen 8 mg/dL (9-16); Calcium 9.2 mg/dL (8.4-10.2); Carbon Dioxide 22 mmol/L (22-29); Chloride 105 mmol/L (96-108); Creatinine Clr Calc Pharmacy 96.8; Estimated Glomerular Filt Rate > 60; Glucose Random 92 mg/dL (60-115); Potassium 4.4 mmol/L (3.3-5.1); Sodium 136 mmol/L (135-145)
[2021-02-01 07:52] VITALS: BP 143/86; PULSE 60; RESP 16; TEMP 36.7; O2SAT 100
[2021-02-01 08:00] VITALS: BP 143/56; PULSE 100; RESP 16; TEMP 36.6; O2SAT 100
[2021-02-01] MEDS: Famotidine/PF 20 MG/2 ML VIAL IVPUSH (08:43)
--- NOTE | 2021-02-01 15:11 | HO.POSTANES ---
Post Anesthesia Evaluation Post Anesthesia Evaluation Vital Signs: Vital Signs Temp Pulse Resp BP Pulse Ox 02/01/21 08:00 98 F 100 16 143/56 H 100 02/01/21 07:52 98.0 F 60 16 143/86 H 100 02/01/21 04:00 97.4 F 56 16 141/82 H 100 Anesthesia: General Endotracheal-GETA Mental Status: Awake Pain Control: Satisfactory Nausea/Vomiting: None Hydration: Adequate Anesthesia-Related Issues: No Anes. Related Issues
[2021-02-02 00:11] LABS: Vitamin A 33 mcg/dL (38-98)
== END 2021-02-01 09:44 | disposition home or self-care (01) | DRG 403 ==
LOC: HO.SSSA 07:31 → HO.S3 12:11
PROVIDERS: Admitting Provider Surgery; PCP Physician Assistant Medical; Visit Provider Surgery
PROC: 0DB64Z3 Excision of Stomach, Percutaneous Endoscopic Approach, Vertical (ICD-10-PCS; CPT 43845; principal; 2021-01-31 09:20)
DX: E66.8 Other obesity (principal); K44.9 Diaphragmatic hernia without obstruction or gangrene; Z20.822 Contact with and (suspected) exposure to COVID-19; Z68.38 Body mass index [BMI] 38.0-38.9, adult; Z87.891 Personal history of nicotine dependence; Z79.899 Other long term (current) drug therapy
CPT/HCPCS: 36415; 80048; 81003; 81025; 82040; 84590; 85025; 85027; 85610; 85730; 86850; 86900; 86901; 87635; 88307; 88342; 93005; 99024; C1776; J0131; J1100; J1170; J2250; J2405; J2550; J2765; J3010

== ENCOUNTER 2021-02-03 10:18 | Emergency (ER) | payer OTHER, SELFPAY ==
--- NOTE | ~2021-02-03 | US_ITS ---
EXAMINATION: US VENOUS ULTRASOUND WITH DOPPLER LOWER EXTREMITY, RIGHT CLINICAL INFORMATION: Postoperative pain COMPARISON: None TECHNIQUE: Ultrasound of the deep veins is performed from the hip to the calf with compression sonography and color and pulse Doppler assessment. Spectral analysis with color-flow imaging is performed. FINDINGS: There is normal venous compression and respiratory variation and augmented flow. The visualized common femoral vein, superficial femoral vein, profunda femoral vein, popliteal vein, and the trifurcation region shows no evidence of deep venous thrombosis. There is no significant popliteal fossa cyst. If the patient's symptoms persist, followup ultrasound in 5 days 7 days might be of value to exclude proximal propagation from a non-visualized calf vein. US/US venous duplex LE RT IMPRESSION: No DVT demonstrated in the right lower extremity.
[2021-02-03 10:31] VITALS: BP 127/88; PULSE 74; RESP 18; TEMP 36.6; O2SAT 100; BMI 36.4
--- NOTE | 2021-02-03 11:32 | ED.LOWEXIN ---
HPI - Extremity Injury (Lower) General Chief Complaint: Extremity Injury, Lower Stated Complaint: rt leg pain Time Seen by Provider: 02/03/21 11:29 Source: patient Mode of arrival: ambulatory Limitations: no limitations History of Present Illness HPI Narrative: 35-year-old female who is 4 days status post gastric lap band surgery, presents for right lateral calf pain that started last night. Patient notices that her right lateral calf has been red, warm, and she feels a painful lump. In addition, patient has had 3 days of back pain since her surgery. No abdominal pain, no fevers, no nausea or vomiting. No back pain red flag symptoms, and no leg weakness, no saddle paresthesias, no incontinence of bowel or bladder. Related Data Home Medications Medication Instructions Recorded Confirmed acetaminophen 325 mg capsule 325 mg PO QID PRN 08/24/20 01/29/21 (Tylenol) albuterol sulfate 90 mcg/actuation 2 puff INHALATION Q6H PRN 08/24/20 01/29/21 aerosol inhaler (ProAir HFA) clonazepam 0.5 mg tablet 0.25 mg PO BEDTIME 08/24/20 01/29/21 zolpidem 5 mg tablet (Ambien) 5 mg PO BEDTIME PRN 08/24/20 01/29/21 propranolol 10 mg tablet 10 mg PO BID PRN 01/25/21 01/29/21 Previous Rx's Medication Instructions Recorded acetaminophen 500 mg tablet 1,000 mg PO Q6H PRN #30 tab 01/25/21 (Tylenol Extra Strength) docusate sodium 100 mg capsule 100 mg PO BID #30 cap 01/25/21 (Colace) famotidine 20 mg tablet (Pepcid AC) 20 mg PO DAILY #30 tab 01/25/21 ondansetron HCl 4 mg tablet 4 mg PO Q6H PRN #30 tab 01/25/21 (Zofran) simethicone 80 mg chewable tablet 80 mg PO TID-QID PRN #30 tab 01/25/21 (Gas Relief (simethicone)) vitamin A palmitate 10,000 unit 20,000 unit PO BID 30 Days #120 tab 02/02/21 tablet cyclobenzaprine 5 mg tablet 5 mg PO TID PRN #15 tab 02/03/21 Allergies Allergy/AdvReac Type Severity Reaction Status Date / Time shellfish derived Allergy Severe Anaphylaxis Verified 01/29/21 09:14 Review of Systems Constitutional: Constitutional: Denies body ache(s), Denies chills, Denies fatigue, Denies fever(s), Denies headache(s), Denies malaise and Denies weakness Eyes: Eyes: Denies diplopia ENT: Denies vertigo, Denies dizziness, Denies otalgia, Denies headache(s), Denies mouth pain, Denies post nasal drip, Denies sinus pain, Denies sinus pressure, Denies sore throat and Denies throat swelling Cardiovascular: Cardiovascular: Denies chest pain, Denies syncope, Denies leg edema, Denies lightheadedness, Denies Loss of Consciousness, Denies palpitations and Denies dyspnea Respiratory: Respiratory: Denies chest congestion, Denies cough and Denies dyspnea Gastrointestinal: Gastrointestinal: Reports abdominal pain, Denies hematochezia, Denies constipation, Denies diarrhea and Denies vomiting Musculoskeletal: Musculoskeletal: Reports back pain Comments: right calf pain Integumentary/Breasts: Skin/Breast: Reports skin swelling Comments: warmth of right calf Neurologic: Denies confusion, Denies vertigo, Denies dizziness, Denies syncope, Denies headache(s) and Denies weakness Psychiatric: Psychiatric: Denies anxiety, Denies confusion and Denies depression Endocrine: Endocrine: Denies fatigue and Denies palpitations Allergic/Immunologic: Allergic/Immunologic: Denies throat swelling PMFSH Past Medical History Medical History Anxiety Asthma COVID-19 vaccine series completed Depression Insomnia Migraines Morbid obesity due to excess calories Pre-diabetes Surgical History History of repair of hiatal hernia History of tubal ligation Hx of section Hx of cholecystectomy Status post laparoscopic sleeve gastrectomy Family History Family History Mother Cancer Hypertension Father No problems noted. Brother No problems noted. Brother Heart disease Sister No problems noted. Sister No problems noted. Son Asthma Son Asthma Daughter Asthma Social History Social History Are you a primary respiratory care instructor to a significant other at home: No Do you presently have visiting nurse or other home services: No Alcohol intake: former Patient Tobacco Use Status: Former Tobacco user Quit Date: 4 yrs ago Tobacco use type: Cigarette Years Smoked: 20 Advance Directives: No Advance Directives Information Provided: No service: No Current occupational status: employed Physical Exam Vital Signs: Vital Signs: Last Vital Signs Temp 97.8 F 02/03/21 10:31 Pulse 74 02/03/21 10:31 Resp 18 02/03/21 10:31 BP 127/88 02/03/21 10:31 Pulse Ox 100 02/03/21 10:31 Body Mass Index 36.4 Const: General: No confusion Nutritional Appearance: well nourished Orientation/consciousness: No confusion Limitations: no limitations HENMT: Head: Yes normal to inspection, Yes normocephalic and Yes atraumatic Ears: hearing grossly normal bilaterally, external ears normal, TM's normal bilaterally and EAC's normal General nose exam: Normal external nose present Face and sinus: Yes normal facial exam and Yes sinuses nontender Mouth: Normal oral and palatal mucosa present Throat: Yes posterior oropharynx normal Eyes: Conjunctivae: conjunctivae normal Pupils: Equal, round and reactive pupils present EOM: EOMs intact bilaterally Neck: Neck: Yes full ROM, Yes no lymphadenopathy and Yes supple Resp: Effort & Inspection: normal respiratory effort and able to speak in complete sentences Auscultation: clear to auscultation bilaterally, no crackles, no rales, no rhonchi and no wheezes Cardio: Rate: regular rate Rhythm: regular rhythm Heart sounds: S1 normal heart sound present and S2 normal heart sound present GI: Inspection: Yes normal to inspection Palpation (GI): Soft to palpation, nontender, no guarding and not rigid Percussion: Yes normal to percussion Auscultation: normal bowel sounds Back/Spine/Pelvis: Other: No vertebral tenderness, patient has midthoracic left-sided Fleet tender paraspinous muscle spasm Skin: Other: No warmth appreciated right lateral calf, no redness or swelling. Patient does have very tender lump right lateral calf Neuro: General: No confusion Cranial nerves: Yes Equal, round and reactive pupils present Extrem: Other: Tenderness just below the skin surface right lateral calf Psych: Appearance: grossly normal Affect: normal affect Attitude: cooperative Thought process: Normal thought process present Course Course Course Narrative: 35-year-old female 4 days status post gastric bypass surgery presents with right lateral calf pain for DVT rule out. In addition patient has back pain for the last 3 days. Patient states that she has had chronic back pain, but it has been much worse since the surgery. On exam, patient has stable vitals, patient's right calf is not red, not warm, not swollen, but has a very tender area in her lateral calf. Patient is also point tender and paraspinous muscle left thoracic region. Gave Israeleril, getting ultrasound to r/o dvt Reevaluation(s) Reevaluation #1: Ultrasound negative for DVT. Will send pt home with Israeleril, and have her call surgeon about back pain Patient agreed she would call her surgeon today and let them know that she has no blood clot, but has the ongoing back pain. He return precautions Discharge Plan Discharge Clinical Impression: Pain of right calf, Left paraspinal back pain Patient Disposition: Home, Self-Care Instructions: Acute Low Back Pain (ED) Additional Instructions: Take the muscle relaxant every 6 hours as needed. Please take 2 extra-strength Tylenol, 1000 mg, every 8 hours, not to exceed 3000 mg in 24 hours. You can also use of warm moist towel, as we discussed, heating up a small hand towel in the microwave and applying it to her back. It is very important that you call your surgeon today and tell them that you are here in the emergency room. Your ultrasound showed that you have no blood clot in your right calf, but I do want you to tell them that you are here, and that you are experiencing the back pain. Please return to the emergency room for any new or concerning symptoms Prescriptions: New cyclobenzaprine 5 mg tablet 5 mg PO TID PRN (Reason: muscle spasm) Qty: 15 RF: 0 No Action vitamin A palmitate 10,000 unit tablet 20,000 unit PO BID 30 Days Qty: 120 RF: 0 acetaminophen [Tylenol Extra Strength] 500 mg tablet 1,000 mg PO Q6H PRN (Reason: pain) Qty: 30 RF: 1 famotidine [Pepcid AC] 20 mg tablet 20 mg PO DAILY Qty: 30 RF: 1 simethicone [Gas Relief (simethicone)] 80 mg tablet,chewable 80 mg PO TID-QID PRN (Reason: abdominal distention) Qty: 30 RF: 1 ondansetron HCl [Zofran] 4 mg tablet 4 mg PO Q6H PRN (Reason: nausea and vomiting) Qty: 30 RF: 1 docusate sodium [Colace] 100 mg capsule 100 mg PO BID Qty: 30 RF: 1 propranolol 10 mg tablet 10 mg PO BID PRN (Reason: migraine headache) RF: 0 clonazepam 0.5 mg tablet 0.25 mg PO BEDTIME RF: 0 zolpidem [Ambien] 5 mg tablet 5 mg PO BEDTIME PRN (Reason: Sleep) RF: 0 acetaminophen [Tylenol] 325 mg capsule 325 mg PO QID PRN (Reason: Pain) RF: 0 albuterol sulfate [ProAir HFA] 90 mcg/actuation HFA aerosol inhaler 2 puff inhalation Q6H PRN (Reason: Wheezing) RF: 0
[2021-02-03] MEDS: Acetaminophen 325 MG TABLET 650 MG PO (12:10)
[2021-02-03] MEDS: Cyclobenzaprine HCl 10 MG TABLET PO (12:12)
== END 2021-02-03 13:16 | disposition home or self-care (01) ==
PROVIDERS: Emergency Provider Emergency Medicine Emergency Medical Services; PCP Nurse Practitioner Family
DX: M79.661 Pain in right lower leg (principal); M54.5 Low back pain; R60.0 Localized edema; Z98.84 Bariatric surgery status; Z79.899 Other long term (current) drug therapy
CPT/HCPCS: 93971; 99284

== ENCOUNTER → 2021-02-14 09:32 | Outpatient (BNVA) | payer OTHER, SELFPAY | PROVIDERS: Referring Provider Nurse Practitioner Family; Visit Provider Surgery | DX: Z98.84 Bariatric surgery status (principal); Z98.890 Other specified postprocedural states; Z87.19 Personal history of other diseases of the digestive system | CPT/HCPCS: 99212 ==

== ENCOUNTER → 2021-02-28 08:21 | Outpatient (BNVA) | payer OTHER, SELFPAY | PROVIDERS: Visit Provider Physician Assistant Surgical | DX: E66.9 Obesity, unspecified (principal); M79.661 Pain in right lower leg; M79.662 Pain in left lower leg; Z68.33 Body mass index [BMI] 33.0-33.9, adult | CPT/HCPCS: 99212 ==

== ENCOUNTER 2021-02-28 10:53 | Outpatient (REF) | payer OTHER, SELFPAY ==
--- NOTE | ~2021-02-28 | US_ITS ---
EXAMINATION: US VENOUS ULTRASOUND WITH DOPPLER LOWER EXTREMITY, BILATERAL CLINICAL INFORMATION: Bilateral leg pain. COMPARISON: Previous right leg exam January 2021 TECHNIQUE: Ultrasound of the deep veins is performed from the hip to the calf with compression sonography and color and pulse Doppler assessment. Spectral analysis with color-flow imaging is performed. FINDINGS: RIGHT: There is normal venous compression and respiratory variation and augmented flow. The visualized common femoral vein, superficial femoral vein, profunda femoral vein, popliteal vein, and the trifurcation region shows no evidence of deep venous thrombosis. There is no significant popliteal fossa cyst. LEFT: There is normal venous compression and respiratory variation and augmented flow. The visualized common femoral vein, superficial femoral vein, profunda femoral vein, popliteal vein, and the trifurcation region shows no evidence of deep venous thrombosis. There is no significant popliteal fossa cyst. US/US venous duplex LE BI IMPRESSION: No DVT demonstrated in the bilateral lower extremity.
== END 2021-02-28 10:54 | disposition home or self-care (01) ==
LOC: HO.US 10:53
PROVIDERS: Visit Provider Physician Assistant Surgical
DX: M79.661 Pain in right lower leg (principal); M79.662 Pain in left lower leg
CPT/HCPCS: 93970

== ENCOUNTER → 2021-03-23 08:17 | Outpatient (BNVA) | payer OTHER, SELFPAY | PROVIDERS: Visit Provider Dietitian, Registered | DX: E66.9 Obesity, unspecified (principal); Z68.31 Body mass index [BMI] 31.0-31.9, adult | CPT/HCPCS: 97803 ==

== ENCOUNTER 2021-04-18 15:09 | Outpatient (REF) | payer OTHER, SELFPAY ==
[2021-04-18 17:23] LABS: MANUAL DIFF FLAG NO
[2021-04-18 17:33] LABS: Basophils Percent Auto 0.3 % (0-2); Eosinophils Absolute Auto 0.2 X10*3/uL (0.0-0.4); Eosinophils Percent Auto 1.5 % (0-4); Hematocrit 37.6 % (37.0-47.0); Hemoglobin 12.2 g/dl (12.0-16.0); Imm Gran Abs Auto 0.03 X10*3/uL (0.00-0.03); Imm Gran Pct Auto 0.3 % (0.0-0.4); Lymphocytes Absolute Auto 4.4 X10*3/uL (1.2-4.9); Lymphocytes Percent Auto 39.7 % (20-40); Mean Corpuscular HGB Conc 32.4 g/dl (31.0-35.0); Mean Corpuscular Hemoglobin 29.5 pg (27.0-33.0); Mean Corpuscular Volume 90.8 fL (80.0-98.0); Monocytes Absolute Auto 0.5 X10*3/uL (0.1-1.2); Monocytes Percent Auto 4.9 % (2-11); Neutrophils Absolute Auto 5.9 x10*3/uL (2.0-8.3); Neutrophils Percent Auto 53.3 % (45-73); Platelet Count 269 X10*3/uL (160-400); Red Blood Count 4.14 X10*6/uL (4.20-5.50)
[2021-04-18 18:00] LABS: Alanine Aminotransferase 13 U/L (0-31); Albumin Level 4.7 g/dL (3.5-5.0); Alkaline Phosphatase 73 U/L (39-117); Anion Gap 17 (12-20); Aspartate Amino Transferase 18 U/L (5-31); Bilirubin Total 0.7 mg/dL (0.0-1.0); Blood Urea Nitrogen 16 mg/dL (9-16); C Reactive Protein 0.08 mg/dL (< or = 0.50); Calcium 10.1 mg/dL (8.4-10.2); Carbon Dioxide 24 mmol/L (22-29); Chloride 103 mmol/L (96-108); Cholesterol 216 mg/dL; Estimated Glomerular Filt Rate > 60; Glucose Random 81 mg/dL (60-115); HDL Cholesterol 50 mg/dL; Iron 38 mcg/dL (30-160); LDL Cholesterol Calculated 150 mg/dl; Percent Iron Saturation 10 % (15-50); Potassium 3.5 mmol/L (3.3-5.1); Sodium 140 mmol/L (135-145); Total Iron Binding Capacity 372 mcg/dL (228-428); Total Protein 8.1 g/dL (6.5-8.0); Triglycerides 83 mg/dL; Unsaturated Iron Binding 334 ug/dL
[2021-04-18 18:09] LABS: Estimated Average Glucose 94 mg/dL; Hemoglobin A1c % 4.9 %
[2021-04-18 18:22] LABS: Ferritin 16 ng/mL (10-122); TSH reflex Free T4 1.24 uIU/mL (0.32-4.0); Vitamin D 25-OH Total 47.7 ng/mL (>30)
[2021-04-18 18:30] LABS: Vitamin B12 866 pg/mL (200-900)
[2021-04-20 16:02] LABS: Calcium (PTHI) 10.1 mg/dL (8.6-10.2); PTHI 47 pg/mL (14-64)
[2021-04-23 06:25] LABS: Vitamin B1 8 nmol/L (8-30)
[2021-04-24 13:26] LABS: Zinc 82 mcg/dL (60-130)
[2021-04-25 00:57] LABS: Vitamin A 31 mcg/dL (38-98)
== END 2021-04-18 15:10 | disposition home or self-care (01) ==
LOC: HO.LAB 15:09
PROVIDERS: Absent Provider Physician Assistant; PCP Nurse Practitioner Family; Referring Provider Nurse Practitioner Family; Visit Provider Internal Medicine Cardiovascular Disease
DX: R07.9 Chest pain, unspecified (principal); R06.02 Shortness of breath; E61.1 Iron deficiency; E66.3 Overweight; Z98.84 Bariatric surgery status; Z98.890 Other specified postprocedural states; Z87.19 Personal history of other diseases of the digestive system
CPT/HCPCS: 36415; 80053; 80061; 82306; 82607; 82728; 82746; 83036; 83540; 83970; 84425; 84443; 84590; 84630; 85025; 86140; 93005; 99212

== ENCOUNTER → 2021-05-15 08:02 | Outpatient (BNVA) | payer OTHER, SELFPAY | PROVIDERS: Visit Provider Physician Assistant ==

== ENCOUNTER 2021-05-17 16:11 | Outpatient (REF) | payer OTHER, SELFPAY ==
[2021-05-17 17:33] LABS: Alanine Aminotransferase 10 U/L (0-31); Alkaline Phosphatase 57 U/L (39-117); Anion Gap 10 (12-20); Aspartate Amino Transferase 15 U/L (5-31); Bilirubin Total 0.6 mg/dL (0.0-1.0); Blood Urea Nitrogen 16 mg/dL (9-16); Calcium 9.7 mg/dL (8.4-10.2); Carbon Dioxide 25 mmol/L (22-29); Chloride 105 mmol/L (96-108); Estimated Glomerular Filt Rate > 60; Glucose Random 79 mg/dL (60-115); Sodium 136 mmol/L (135-145)
[2021-05-17 17:53] LABS: Vitamin D 25-OH Total 42.1 ng/mL (>30)
[2021-05-17 18:01] LABS: Folate 18.9 ng/mL (> or = 4.0); Vitamin B12 757 pg/mL (200-900)
[2021-05-22 01:27] LABS: Zinc 68 mcg/dL (60-130)
[2021-05-22 20:32] LABS: Vitamin A 31 mcg/dL (38-98)
[2021-05-23 14:41] LABS: Vitamin B1 13 nmol/L (8-30)
== END 2021-05-17 16:12 | disposition home or self-care (01) ==
LOC: HO.LAB 16:11
PROVIDERS: Visit Provider Physician Assistant
DX: R20.0 Anesthesia of skin (principal); Z90.3 Acquired absence of stomach [part of]; Z98.84 Bariatric surgery status
CPT/HCPCS: 36415; 80053; 82306; 82607; 82746; 83735; 84425; 84590; 84630

== ENCOUNTER → 2021-08-01 13:59 | Outpatient (BNVA) | payer OTHER, SELFPAY | PROVIDERS: Visit Provider Physician Assistant | DX: E66.3 Overweight (principal); M79.3 Panniculitis, unspecified; Z98.84 Bariatric surgery status; Z98.890 Other specified postprocedural states; Z87.19 Personal history of other diseases of the digestive system; Z68.26 Body mass index [BMI] 26.0-26.9, adult | CPT/HCPCS: 99212 ==

== ENCOUNTER 2021-08-08 06:20 | Outpatient (REF) | payer OTHER, SELFPAY ==
[2021-08-08 06:47] LABS: MANUAL DIFF FLAG NO
[2021-08-08 07:37] LABS: Basophils Percent Auto 0.4 % (0-2); Eosinophils Absolute Auto 0.2 X10*3/uL (0.0-0.4); Eosinophils Percent Auto 2.4 % (0-4); Hematocrit 33.9 % (37.0-47.0); Hemoglobin 11.2 g/dl (12.0-16.0); Imm Gran Abs Auto 0.02 X10*3/uL (0.00-0.03); Imm Gran Pct Auto 0.3 % (0.0-0.4); Lymphocytes Absolute Auto 3.7 X10*3/uL (1.2-4.9); Lymphocytes Percent Auto 54.1 % (20-40); Mean Corpuscular Hemoglobin 30.1 pg (27.0-33.0); Mean Corpuscular Volume 91.1 fL (80.0-98.0); Mean Platelet Volume 8.8 fL (9.4-12.3); Monocytes Absolute Auto 0.4 X10*3/uL (0.1-1.2); Monocytes Percent Auto 6.5 % (2-11); Neutrophils Absolute Auto 2.5 x10*3/uL (2.0-8.3); Neutrophils Percent Auto 36.3 % (45-73); Platelet Count 261 X10*3/uL (160-400); Red Blood Count 3.72 X10*6/uL (4.20-5.50); Red Cell Distribution Width 13.4 % (11.0-16.0); White Blood Count 6.8 X10*3/uL (4.8-10.8)
[2021-08-08 07:51] LABS: Estimated Average Glucose 94 mg/dL; Hemoglobin A1c % 4.9 %
[2021-08-08 07:58] LABS: Alanine Aminotransferase 12 U/L (0-31); Alkaline Phosphatase 51 U/L (39-117); Anion Gap 10 (12-20); Aspartate Amino Transferase 15 U/L (5-31); Bilirubin Total 0.8 mg/dL (0.0-1.0); Blood Urea Nitrogen 14 mg/dL (9-16); C Reactive Protein 0.04 mg/dL (< or = 0.50); Calcium 9.6 mg/dL (8.4-10.2); Carbon Dioxide 24 mmol/L (22-29); Chloride 107 mmol/L (96-108); Cholesterol 192 mg/dL; Estimated Glomerular Filt Rate > 60; Glucose Random 84 mg/dL (60-115); HDL Cholesterol 57 mg/dL; Iron 52 mcg/dL (30-160); LDL Cholesterol Calculated 124 mg/dl; Percent Iron Saturation 13 % (15-50); Sodium 137 mmol/L (135-145); Total Iron Binding Capacity 387 mcg/dL (228-428); Triglycerides 56 mg/dL; Unsaturated Iron Binding 335 ug/dL
[2021-08-08 08:20] LABS: Ferritin 6 ng/mL (10-122); Insulin 8 uU/mL (2-29); TSH reflex Free T4 1.49 uIU/mL (0.32-4.0); Vitamin D 25-OH Total 44.5 ng/mL (>30)
[2021-08-08 08:29] LABS: Folate 11.7 ng/mL (> or = 4.0); Vitamin B12 580 pg/mL (200-900)
[2021-08-09 12:06] LABS: Calcium (PTHI) 9.5 mg/dL (8.6-10.2); PTHI 39 pg/mL (16-77)
[2021-08-11 14:06] LABS: Zinc 70 mcg/dL (60-130)
[2021-08-13 11:56] LABS: Vitamin B1 15 nmol/L (8-30)
[2021-08-14 10:52] LABS: Vitamin A 49 mcg/dL (38-98)
== END 2021-08-08 06:21 | disposition home or self-care (01) ==
LOC: HO.LAB 06:20
PROVIDERS: PCP Nurse Practitioner Family; Visit Provider Physician Assistant
DX: E66.3 Overweight (principal); R73.03 Prediabetes; Z87.19 Personal history of other diseases of the digestive system; Z98.84 Bariatric surgery status; Z98.890 Other specified postprocedural states
CPT/HCPCS: 36415; 80053; 80061; 82306; 82607; 82728; 82746; 83036; 83525; 83540; 83970; 84425; 84443; 84590; 84630; 85025; 86140

== ENCOUNTER → 2021-08-31 08:17 | Outpatient (BNVA) | payer OTHER, SELFPAY | PROVIDERS: Visit Provider Dietitian, Registered ==

== ENCOUNTER → 2021-09-06 08:07 | Outpatient (BNVA) | payer OTHER, SELFPAY | PROVIDERS: Referring Provider Physician Assistant; Visit Provider Dietitian, Registered | DX: E66.3 Overweight (principal); Z68.25 Body mass index [BMI] 25.0-25.9, adult | CPT/HCPCS: 97803 ==

== ENCOUNTER → 2021-10-17 16:01 | Outpatient (BNVA) | payer OTHER, SELFPAY | PROVIDERS: Visit Provider Physician Assistant Surgical | DX: M79.3 Panniculitis, unspecified (principal); Z98.84 Bariatric surgery status | CPT/HCPCS: 99212 ==

== ENCOUNTER → 2022-02-13 09:37 | Outpatient (BNVA) | payer OTHER, SELFPAY | PROVIDERS: PCP Nurse Practitioner Family; Referring Provider Nurse Practitioner Family; Visit Provider Physician Assistant Surgical | DX: M79.3 Panniculitis, unspecified (principal); E66.3 Overweight; Z98.84 Bariatric surgery status | CPT/HCPCS: 99212 ==

== ENCOUNTER 2022-02-14 06:15 | Outpatient (REF) | payer OTHER, SELFPAY ==
[2022-02-14 06:36] LABS: MANUAL DIFF FLAG NO
[2022-02-14 07:31] LABS: Basophils Percent Auto 0.6 % (0-2); Eosinophils Absolute Auto 0.2 X10*3/uL (0.0-0.4); Hematocrit 34.3 % (37.0-47.0); Hemoglobin 11.2 g/dl (12.0-16.0); Imm Gran Abs Auto 0.02 X10*3/uL (0.00-0.03); Imm Gran Pct Auto 0.3 % (0.0-0.4); Lymphocytes Absolute Auto 3.2 X10*3/uL (1.2-4.9); Lymphocytes Percent Auto 50.5 % (20-40); Mean Corpuscular HGB Conc 32.7 g/dl (31.0-35.0); Mean Corpuscular Hemoglobin 28.5 pg (27.0-33.0); Mean Corpuscular Volume 87.3 fL (80.0-98.0); Mean Platelet Volume 8.6 fL (9.4-12.3); Monocytes Absolute Auto 0.4 X10*3/uL (0.1-1.2); Monocytes Percent Auto 6.3 % (2-11); Neutrophils Absolute Auto 2.5 x10*3/uL (2.0-8.3); Neutrophils Percent Auto 39.3 % (45-73); Platelet Count 260 X10*3/uL (160-400); Red Blood Count 3.93 X10*6/uL (4.20-5.50); Red Cell Distribution Width 13.3 % (11.0-16.0); White Blood Count 6.4 X10*3/uL (4.8-10.8)
[2022-02-14 07:40] LABS: Estimated Average Glucose 100 mg/dL; Hemoglobin A1c % 5.1 %
[2022-02-14 08:05] LABS: Alanine Aminotransferase 9 U/L (0-31); Albumin Level 4.1 g/dL (3.5-5.0); Alkaline Phosphatase 57 U/L (39-117); Anion Gap 11 (12-20); Aspartate Amino Transferase 17 U/L (5-31); Bilirubin Total 0.7 mg/dL (0.0-1.0); Blood Urea Nitrogen 14 mg/dL (9-16); C Reactive Protein 0.03 mg/dL (< or = 0.50); Calcium 9.4 mg/dL (8.4-10.2); Carbon Dioxide 25 mmol/L (22-29); Chloride 106 mmol/L (96-108); Cholesterol 195 mg/dL; Estimated Glomerular Filt Rate > 60; Glucose Random 82 mg/dL (60-115); HDL Cholesterol 73 mg/dL; Iron 59 mcg/dL (30-160); LDL Cholesterol Calculated 114 mg/dl; Percent Iron Saturation 15 % (15-50); Potassium 4.1 mmol/L (3.3-5.1); Sodium 138 mmol/L (135-145); Total Iron Binding Capacity 399 mcg/dL (228-428); Total Protein 7.2 g/dL (6.5-8.0); Triglycerides 41 mg/dL; Unsaturated Iron Binding 340 ug/dL
[2022-02-14 08:30] LABS: Ferritin 6 ng/mL (10-122); Insulin 5 uU/mL (2-29); TSH reflex Free T4 1.56 uIU/mL (0.32-4.0); Vitamin D 25-OH Total 37.3 ng/mL (>30)
[2022-02-14 09:00] LABS: Folate 15.6 ng/mL (> or = 4.0); Vitamin B12 770 pg/mL (200-900)
[2022-02-15 13:22] LABS: Calcium (PTHI) 9.1 mg/dL (8.6-10.2); PTHI 47 pg/mL (16-77)
[2022-02-18 06:06] LABS: Vitamin B1 17 nmol/L (8-30)
[2022-02-19 06:11] LABS: Zinc 82 mcg/dL (60-130)
[2022-02-20 10:36] LABS: Vitamin A 40 mcg/dL (38-98)
== END 2022-02-14 06:16 | disposition home or self-care (01) ==
LOC: HO.LAB 06:15
PROVIDERS: Visit Provider Physician Assistant Surgical
DX: Z98.84 Bariatric surgery status (principal)
CPT/HCPCS: 36415; 80053; 80061; 82306; 82607; 82728; 82746; 83036; 83525; 83540; 83970; 84425; 84443; 84590; 84630; 85025; 86140

== ENCOUNTER → 2022-04-22 14:37 | Outpatient (BNVA) | payer OTHER, SELFPAY | PROVIDERS: PCP Nurse Practitioner Family; Referring Provider Nurse Practitioner Family; Visit Provider Internal Medicine Cardiovascular Disease | DX: R06.02 Shortness of breath (principal); R00.2 Palpitations; R07.9 Chest pain, unspecified; E61.1 Iron deficiency | CPT/HCPCS: 93005; 99212 ==

== ENCOUNTER → 2022-06-04 08:24 | Outpatient (BNVA) | payer OTHER, SELFPAY | PROVIDERS: PCP Nurse Practitioner Family; Referring Provider Nurse Practitioner Family; Visit Provider Physician Assistant Surgical | DX: E66.3 Overweight (principal); Z68.25 Body mass index [BMI] 25.0-25.9, adult; L98.7 Excessive and redundant skin and subcutaneous tissue; Z98.84 Bariatric surgery status | CPT/HCPCS: 99212 ==

== ENCOUNTER → 2022-10-21 15:21 | Outpatient (BNVA) | payer MEDICAID, SELFPAY | PROVIDERS: PCP Nurse Practitioner Family; Referring Provider Nurse Practitioner Family; Visit Provider Internal Medicine Cardiovascular Disease | DX: R00.2 Palpitations (principal) | CPT/HCPCS: 99212 ==

== ENCOUNTER 2023-06-05 09:44 | Outpatient (AMB) | payer MEDICAID, SELFPAY ==
--- NOTE | 2023-06-05 10:03 | A.OFFVIS_ITS ---
Intake Vital Signs 06/05/23 10:05 Height 5 ft 5 in Weight 161 lb BMI 26.8 BP 110/80 Blood Pressure Location Rt brachial Position Sitting Pulse 78 Pulse Source Pulse Oximeter Pulse Oximetry (%) 98 Oxygen Delivery Method Room Air Intake Visit Reasons: [id number] Intake Note: Patient presents for migraines. I've always had migraines but now I'm experiencing nausea and pressure in my eye. Allergies shellfish derived Allergy (Severe, Verified 06/05/23 10:06) Anaphylaxis Medication List - Last Reconciled 06/05/23 by ROBERTO Herzog albuterol sulfate 90 mcg/actuation (ProAir HFA) 2 puffs inhalation Q6H PRN clonazepam 2 mg PO BID PRN clotrimazole 1% 1 appl topical BID oecriqbqnzfe-beg-zbkn-FA-vit K 45 mg iron- 800 mcg-120 mcg (Bariatric Multivit amins) caps PO DAILY propranolol 10 mg PO BID PRN sumatriptan succinate 100 mg PO Q2-4H PRN zolpidem (Ambien) 5 mg PO BEDTIME PRN HPI HPI Comments History of Present Illness Details Will 37-year-old female presents for new pt evaluation of headache disorder. Pt reports she has had migraine since childhood, but her migraines are worsening with more nausea and left visual changes. About 2 yrs ago, she had gastric sleeve surgery, and could no longer use her Ibuprofen which used to help. Recently tried Sumatriptan but caused anxiety. When younger, her migraines would be either or right or left sided, but now it is always left sided. Patient endorses medication anxiety related to her father due to a medication error, anxiety, heart palpitations, tachycardia, chest pain, sexual dysfunction. Snoring, previous HST was normal. 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 Patient states she has a remote history asthma and high blood pressure, which subsided after her gastric sleeve procedure. She denies any history of head injury, seizures, sleep problems, thyroid disease, diabetes, neck problems. Headache questionnaire: Previous work-up? Denies. Typical headache characteristics: Prodrome symptoms? Bilateral finger tip numbness, coldness- starts 1-2 days before a migraine, but can occur after. Aura? Left eye- sees spots. Now within a minute, she starts feeling like she is looking through a kaleidoscope and then cannot see anything- like something is blocking her vision- this lasts about 30 min. Pain intensity? Mild to moderate or severe Location, quality, characteristics? Pressure in retro-orbital, temporal, frontal and job regions. Will feel like her eyes will pop out. Associated symptoms? Photophobia, phonophobia, osmophobia, severe nausea, spinning dizziness, fatigue, activity intolerance, brain fog. Denies focal weakness, red eye, droopy eyelid, runny nose, or congestion. Postdrome? Lingering symptoms Triggers? None Any positional, valsalva, exertional, sexual activity triggers? Standing up during the headache will exacerbate the headache Menstrual triggers? Denies. Menstrual cycle is regular. Time of day? Always in the am, when she wakes up or within 1-2 hours of starting work. Duration? If mild to moderate last hours to 1 day. If severe lasts 1-3 days. Frequency? Mild to moderate occur 2 times per week. Severe occurs 1 time per week. More severe prolonged attack occurs every 3-4 months. How does headache impact your life? 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 Current acute medication use/interventions: Tylenol or ibuprofen Previous acute medication use: Sumatriptan made her feel anxious. Current preventative medication use: None Previous preventative medication use: None Non-pharmacological interventions: Rest Family planning? Status post partial hysterectomy with fallopian tube excision. Family history of migraine or other headache disorder? Denies [facility] Medical History (Updated 06/05/23 @ 11:07 by ROBERTO Herzog) COVID-19 vaccine series completed Asthma Migraines Anxiety Depression Pre-diabetes Insomnia Morbid obesity due to excess calories Surgical History History of salpingectomy History of removal of ovarian cyst History of repair of hiatal hernia Status post laparoscopic sleeve gastrectomy History of tubal ligation Hx of section Hx of cholecystectomy Family History Mother Cancer Hypertension Father History of heart attack Brother No problems noted. Brother Heart disease Sister No problems noted. Sister No problems noted. Son Asthma Son Asthma Daughter Asthma Social History Are you a primary customer care representative to a significant other at home: No Do you presently have visiting nurse or other home services: No Alcohol intake: former Patient Tobacco Use Status: Former Tobacco user Quit Date: 4 yrs ago Tobacco use type: Cigarette Years Smoked: 20 service: No Current occupational status: employed Physical Exam Vital Signs: Last Vital Signs Pulse 78 06/05/23 10:05 BP 110/80 06/05/23 10:05 Pulse Ox 98 06/05/23 10:05 Oxygen Delivery Method Room Air 06/05/23 10:05 BMI result Body Mass Index 26.8 Const Orientation/consciousness: patient oriented x3 HEENT Other: No palpable scalp tenderness. Head: Yes normocephalic Resp Effort & Inspection: normal respiratory effort and able to speak in complete sentences Neuro General: patient oriented x3 Cranial nerves: Yes CN's II-XII intact bilaterally Cognition (Neuro): normal cognition Gait exam (Neuro): Normal gait present Motor exam (neuro): 5/5 motor strength present throughout Deep tendon reflexes (DTR's): Right triceps reflex intensity grade: 2+, Left triceps reflex intensity grade: 2+, Rt Biceps (C5, C6): 2+, Left biceps reflex intensity grade: 2+, Right brachioradialis reflex intensity grade: 2+, Left brachioradialis reflex intensity grade: 2+, Right patellar reflex intensity grade: 2+ and Left patellar reflex intensity grade: 2+ Coordination: [id number] test normal, tandem gait normal and Romberg test negative Pupils: Normal pupillary reactivity/response: bilateral Psych Appearance: grossly normal Mental Status: mental status grossly normal Speech and movement: Normal speech and movement present Affect: normal affect Attitude: cooperative Thought process: Normal thought process present Assessment & Plan Assessment & Plan (1) Worsening headaches: Code(s): R51.9 - Headache, unspecified (2) Iron deficiency: Code(s): E61.1 - Iron deficiency (3) Visual aura: Code(s): H53.9 - Unspecified visual disturbance (4) Numbness of fingers of both hands: Comment: fingertips- in days prior to migraine attack Code(s): R20.0 - Anesthesia of skin (5) Numbness of toes: Comment: bilateral 1st toes Code(s): R20.0 - Anesthesia of skin Plan Pt advised to undergo brain MRI with and without contrast to assess for secondary etiologies of worsening headache associated with visual changes, paresthesias. Check labs for common etiologies of above. For overall headache management: Discussed importance of good self-care, including but not limited to maintaining a healthy diet, adequate fluid intake, adequate sleep, and engaging in regular physical activity. For headache triggers: Track headaches, especially after any treatment regimen changes. [employer] is one of many headache tracking apps. For acute headache treatment: Discussed importance of taking acute medications at the first sign of headache, however stressed importance of avoiding acute medication overuse (especially with combined headache medications). Trial naratriptan p.r.n., discuss that this has a lower risk for adverse effects than other triptans. Reviewed potential adverse effects of triptans, including but not limited to nausea, fatigue, chest tightness/tingling (usually passes within a few minutes), medication overuse headaches. Previous acute migraine medication trials: Sumatriptan caused anxiety. Acute migraine medication contraindications: NSAIDs due to history of gastric sleeve surgery. For headache prevention medication: Discussed that preventative medications should be taken routinely as prescribed for best effect, it may take several weeks for full effect to take effect. 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 Pt to follow-up in 2-3 months or sooner prn. Orders: Orders Ferritin 06/05/23 R51.9 - Headache, unspecified, R20.0 - Anesthesia of skin, E61.1 - Iron deficiency Folate 06/05/23 R51.9 - Headache, unspecified, R20.0 - Anesthesia of skin, E61.1 - Iron deficiency Rheumatoid Factor 06/05/23 R51.9 - Headache, unspecified, R20.0 - Anesthesia of skin, E61.1 - Iron deficiency Erythrocyte Sedimentation Rate 06/05/23 R51.9 - Headache, unspecified, R20.0 - Anesthesia of skin, E61.1 - Iron deficiency CRP High Sensitivity 06/05/23 R51.9 - Headache, unspecified, R20.0 - Anesthesia of skin, E61.1 - Iron deficiency IRON PROFILE 06/05/23 R51.9 - Headache, unspecified, R20.0 - Anesthesia of skin, E61.1 - Iron deficiency Transferrin 06/05/23 R51.9 - Headache, unspecified, R20.0 - Anesthesia of skin, E61.1 - Iron deficiency Vitamin D 25-OH (D2 and D3) 06/05/23 E55.9 - Vitamin D deficiency, unspecified MR head/brain wo/w con 06/05/23 R20.0 - Anesthesia of skin, H53.9 - Unspecified visual disturbance, R51.9 - Headache, unspecified Vitamin B12 and Folate 06/05/23 R51.9 - Headache, unspecified, R20.0 - Anesthesia of skin, E61.1 - Iron deficiency Comprehensive Met. Panel 06/05/23 R51.9 - Headache, unspecified, R20.0 - Anesthesia of skin, E61.1 - Iron deficiency Complete Blood Count Auto Diff 06/05/23 R51.9 - Headache, unspecified, R20.0 - Anesthesia of skin, E61.1 - Iron deficiency SHARRI Reflex Titer and Pattern 06/05/23 R51.9 - Headache, unspecified, R20.0 - Anesthesia of skin, E61.1 - Iron deficiency Homocysteine 06/05/23 R51.9 - Headache, unspecified, R20.0 - Anesthesia of skin, E61.1 - Iron deficiency Methylmalonic Acid 06/05/23 R51.9 - Headache, unspecified, R20.0 - Anesthesia of skin, E61.1 - Iron deficiency TSH reflex Free T4 06/05/23 R51.9 - Headache, unspecified, R20.0 - Anesthesia of skin, E61.1 - Iron deficiency Hemoglobin A1c 06/05/23 R20.0 - Anesthesia of skin, E66.3 - Overweight Medications: New naratriptan take 1/2 - 1 tab at onset of headache; if no relief may repeat 1 tab after at least 4 hrs; max = 2 tabs/24 hrs orally PRN; 12 tabs 6RF migraine headache 30 days riboflavin (vitamin B2) 400 mg PO DAILY 30 tabs 6RF 30 days magnesium oxide may hold for loose stools 400 mg PO BEDTIME 30 tabs 6RF 30 days Coding Level of Care Code New Pt Level 4 (28818) Diagnoses Worsening headaches R51.9 Iron deficiency E61.1 Visual aura H53.9 Numbness of fingers of both hands R20.0 Numbness of toes R20.0
[2023-06-05 10:05] VITALS: BP 110/80; PULSE 78; O2SAT 98; BMI 26.8
== END 2023-06-05 11:27 | disposition home or self-care (01) ==
PROVIDERS: PCP Nurse Practitioner Family; Visit Provider Nurse Practitioner Family
DX: R51.9 Headache, unspecified (principal); E61.1 Iron deficiency; H53.9 Unspecified visual disturbance; R20.0 Anesthesia of skin
CPT/HCPCS: 99204

== ENCOUNTER → 2023-06-05 09:44 | Outpatient (BNVA) | payer OTHER, SELFPAY | PROVIDERS: PCP Nurse Practitioner Family; Visit Provider Nurse Practitioner Family | DX: R51.9 Headache, unspecified (principal); R20.0 Anesthesia of skin; E61.1 Iron deficiency; H53.9 Unspecified visual disturbance | CPT/HCPCS: 99212 ==

== ENCOUNTER 2023-08-01 07:46 | Outpatient (AMB) | payer OTHER, SELFPAY ==
--- NOTE | 2023-08-01 07:47 | A.OFFVIS_ITS ---
Intake Intake Visit Reasons: 8 wks f/u-CONF Intake Note: Patient presents for 8 weeks follow up. Allergies shellfish derived Allergy (Severe, Verified 08/01/23 07:48) Anaphylaxis Medication List - Last Reconciled 08/01/23 by ROBERTO Herzog albuterol sulfate 90 mcg/actuation (ProAir HFA) 2 puffs inhalation Q6H PRN ascorbic acid (vitamin C) 250 mg PO DAILY 30 days clonazepam 2 mg PO BID PRN clotrimazole 1% 1 appl topical BID docusate sodium (Colace) 100 mg PO BID PRN 30 days ferrous sulfate 325 mg PO DAILY 30 days magnesium oxide 400 mg PO BEDTIME 30 days glbhzbwastul-hei-qaoo-FA-vit K 45 mg iron- 800 mcg-120 mcg (Bariatric Multivitamins) caps PO DAILY naratriptan take 1/2 - 1 tab at onset of headache; if no relief may repeat 1 tab after at least 4 hrs; max = 2 tabs/24 hrs orally PRN; 30 days propranolol 10 mg PO BID PRN riboflavin (vitamin B2) 400 mg PO DAILY 30 days sumatriptan succinate 100 mg PO Q2-4H PRN zolpidem (Ambien) 5 mg PO BEDTIME PRN HPI HPI Comments History of Present Illness Details 37-yr-old female presents for f/u teleph one visit via [facility]. Pt denies any significant interval medical changes. She states her migraines are better-less frequent and with less blurry vision. Now having 1 migraine w/ nausea day per week. Usually triggered by stress or not sleeping well. Now using Tylenol and Zofran prn- w/ not full effect She tried Naratriptan, which helped but caused anxiety. Labs revealed iron deficiency anemia. She has started iron supplement, since she started iron she is no longer eating ice or not feeling as tired. Baseline headache characteristics: Aura: Left eye- sees spots. Now within a minute, she starts feeling like she is looking through a kaleidoscope and then cannot see anything- like something is blocking her vision- this lasts about 30 min. Mild or moderate or severe Pressure in retro-orbital, temporal, frontal and job regions. Will feel like her eyes will pop out a/wPhotophobia, phonophobia, osmophobia, severe nausea, spinning dizziness, fatigue, activity intolerance, brain fog. Denies focal weakness, red eye, droopy eyelid, runny nose, or congestion. Postdrome: Lingering symptoms 06/05/23 11:44 05/04/23 13:42 WBC 5.8 6.9 RBC 3.85 4.43 HgB 8.9 9.9 HcT 29.5 34.1 MCV 76.6 77 MCH 23.1 22.3 MCHC 3 0.2 29.0 Platelet Count 408 410 RDW-SD 44.8 47.8 MPV 8.9 8.6 Nucleated RBC (Aut omated) 0.0 0.0 Abs. NRBC 0.0 0.0 Abs. Neut 2.3 3.2 Abs. Lymph 3.0 3.0 Abs. [place] 0.4 0.5 Abs. Eo 0.2 0.1 Abs. Baso 0.0 0.0 Neut % 39.0 46.0 Lymph % 50.9 43.9 [place] % 6.5 7.2 Eos % 2.7 2.0 Baso % 0.7 0.6 Imm Gran 0.2 0.3 Abs. Imm Gran 0.0 0.0 Sed Rate 16 06/05/23 11:40 05/04/23 13:42 Sodium 139 141 Potassium 4.5 4.1 Chloride 104 104 Bicarbonate Level 26 25 Anion Gap 9 12 Glucose Level 80 88 Hemoglobin A1C (Mo nitoring) *5.5 -- BUN 12 12 Creatinine-Blood 0.9 ?1.1 Estimated GFR Crea tinine *81 *69 Calcium 9.4 9.4 Protein, Total 7.3 7.2 Albumin 4.4 4.4 AG Ratio 1.5 1.6 Alkaline Phosphata se 74 82 AST (SGOT) 22 18 ALT (SGPT) 13 11 Bilirubin, Total 0.4 0.2 Vitamin B12 Level 651 -- Folic Acid Level 10.3 -- Iron Level ?13 -- Iron Binding [place], Unsaturated ?459 -- Iron Binding [place], Estimated Tot al 472 -- % Iron Saturation ?3 -- Ferritin Level ?5 -- CRP - Ultra/High S ensitivity 0.26 -- Homocysteine, Plas ma/Serum 10.2 -- TSH 0.73 -- Serum Qu al *NEGATIVE -- Methylmalonic Acid Level *149 -- 06/05/23 11:40 Transferrin ?384 Anti-Nuclear Antib micaela Screen *NEGATIVE Rheumatoid Factor <10.0 [facility] Medical History (Updated 08/17/23 @ 20:31 by ROBERTO Herzog) COVID-19 vaccine series completed Asthma Migraines Anxiety Depression Pre-diabetes Insomnia Morbid obesity due to excess calories Surgical History History of salpingectomy History of removal of ovarian cyst History of repair of hiatal hernia Status post laparoscopic sleeve gastrectomy History of tubal ligation Hx of section Hx of cholecystectomy Family History Mother Cancer Hypertension Father History of heart attack Brother No problems noted. Brother Heart disease Sister No problems noted. Sister No problems noted. Son Asthma Son Asthma Daughter Asthma Social History Are you a primary pet caretaker to a significant other at home: No Do you presently have visiting nurse or other home services: No Alcohol intake: former Patient Tobacco Use Status: Former Tobacco user Quit Date: 4 yrs ago Tobacco use type: Cigarette Years Smoked: 20 service: No Current occupational status: employed Physical Exam Const General: cooperative and no acute distress Orientation/consciousness: patient oriented x3 Resp Effort & Inspection: normal respiratory effort and able to speak in complete sentences Neuro General: patient oriented x3 Cognition (Neuro): normal cognition Psych Appearance: grossly normal Mental Status: mental status grossly normal Speech and movement: Normal speech and movement present Affect: normal affect Attitude: cooperative Assessment & Plan Assessment & Plan (1) Migraine with aura: Code(s): G43.109 - Migraine with aura, not intractable, without status migrainosus (2) Anemia: Code(s): D64.9 - Anemia, unspecified (3) Numbness of fingers of both hands: Comment: fingertips- in days prior to migraine attack Code(s): R20.0 - Anesthesia of skin (4) Numbness of toes: Comment: bilateral 1st toes Code(s): R20.0 - Anesthesia of skin Plan Will follow up on status of brain MRI with and without contrast to assess for secondary etiologies of headache associated with visual changes, paresthesias. Reviewed labs, notable for iron deficiency anemia. Patient has started supplemental iron with vitamin-C. Hematology consult requested. ? For overall headache management: Optimize good self-care, including but not limited to maintaining a healthy diet, adequate fluid intake, adequate sleep, and engaging in regular physical activity. For headache triggers: Track headaches. ? For acute headache treatment: Discontinue Naratriptan tolerated. Trial Ubrogepant (Ubrelvy) 100mg tab, 1/2 - 1 tab (50-100mg) at onset of headache, may repeat in 2 hours. Max of 2 tabs (200mg) per 24 hours. May adjunct with OTC Tylenol 650mg q 4 hours, Ibuprofen 600mg q 6 hours, or Naproxen 440mg q 12 hrs prn. May use Zofran p.r.n. Previous acute migraine medication trials: Sumatriptan caused anxiety. Naratriptan was not tolerated. Acute migraine medication contraindications: NSAIDs due to history of gastric sleeve surgery. ? 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 ? Pt to follow-up in 3 months or sooner prn. Medications: New ubrogepant (Ubrelvy) take at onset of migraine, may repeat in 2hrs (may take w/ Tylenol) 50 - 100 mg (0.5 - 1 x 100 mg) PO ONCE PRN 16 tabs 3RF migraine headache 30 days Discontinued naratriptan Discontinued Reason: Doctor's Order take 1/2 - 1 tab at onset of headache; if no relief may repeat 1 tab after at least 4 hrs; max = 2 tabs/24 hrs orally PRN; 30 days 12 tabs 6RF migraine headache Telehealth Telehealth Location of provider rendering services: practice address Location of patient: address on file Patient Identification confirmed using: Name, : Yes Telehealth method: video Patient verbally consented to treatment: Yes Patient verbally consented to billing insurance company: Yes Patient informed of any privacy concerns related to visit: Yes Minutes spent on Phone/Video with Pt.: 25 Coding Level of Care Code Tele Est Pt Level 4 (00876) Diagnoses Migraine with aura G43.109 Anemia D64.9 Numbness of fingers of both hands R20.0 Numbness of toes R20.0
== END 2023-08-01 14:04 | disposition home or self-care (01) ==
LOC: HO.HSMS 07:46
PROVIDERS: PCP Nurse Practitioner Family; Visit Provider Nurse Practitioner Family
DX: G43.109 Migraine with aura, not intractable, without status migrainosus (principal); D64.9 Anemia, unspecified; R20.0 Anesthesia of skin
CPT/HCPCS: 99214

== ENCOUNTER → 2023-08-01 07:46 | Outpatient (BNVA) | payer OTHER, SELFPAY | PROVIDERS: PCP Nurse Practitioner Family; Visit Provider Nurse Practitioner Family ==

== ENCOUNTER → 2023-08-22 08:53 | Outpatient (BNV) | payer OTHER, SELFPAY | PROVIDERS: PCP Nurse Practitioner Family; Referring Provider Nurse Practitioner Family; Visit Provider Internal Medicine Medical Oncology | DX: D64.9 Anemia, unspecified (principal) | CPT/HCPCS: 99204; 99213 ==

== ENCOUNTER 2023-09-01 10:45 | Outpatient (AMB) | payer OTHER, SELFPAY ==
--- NOTE | 2023-09-01 10:34 | A.OFFVIS_ITS ---
VS Expanded 09/01/23 10:45 Height 5 ft 5 in Weight 160 lb BMI 26.6 Intake Visit Reasons: (TV) PO LSG 01/31/21 Allergies shellfish derived Allergy (Severe, Verified 08/22/23 09:01) Anaphylaxis HPI Comments Details: This?is a?37?yo female who is s/p LSG 01/31/2021. Presents for 2.5 year post op visit. Weight at last visit on 06/04/2022 was 152.2 pounds with a BMI of 25.3, weight today is [] pounds, representing a [] pound weight loss with a BMI today of [].? No complaints of nausea, emesis, abdominal pain or reflux, or constipation. Getting weekly iron infusions for anemia. 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 Present meal plan includes: Breakfast- eggs in a wrap Lunch- often on the road but tries to avoid bread/carbs, will have some fruits Dinner 5pm- 4oz meat, sometimes will add vegetables and small portion of a carb Snack- yogurt with blueberries Taking MVI and calcium. Has more recently transitioned back to more protein shakes after experiencing a few episodes of hypoglycemia. Reports that she continues to have problems with her pannus, foul smelling rashes of skin under pannus after working or exercise, with pannus continuing to cause discomfort with movement and while wearing certain clothes. Has to use wipes to place in skin folds to collect moisture and avoid odor. Has to wear compressive pants to hold skin in place. Has Rx for clotrimazole when rashes worsen for which she needed a refill from PCP. Difficulty bending down / tying shoes due to discomfort. She also has noticed problems with excess skin of both arms and legs. Friction occurs between skin of legs and between skin of arms/body which is painful. She also gets rashes on lateral sides of breasts due to excess skin of arms rubbing against. Extra skin is uncomfortable with movement/exercise. Has to wear long tight sleeves and compressive pants around thighs to prevent friction and hold skin in place. [facility] Medical History (Updated 09/01/23 @ 10:40 by DINO Matias) COVID-19 vaccine series completed Asthma Migraines Anxiety Depression Pre-diabetes Insomnia Morbid obesity due to excess calories Surgical History History of salpingectomy History of removal of ovarian cyst History of repair of hiatal hernia Status post laparoscopic sleeve gastrectomy History of tubal ligation Hx of section Hx of cholecystectomy Family History (Updated 08/22/23 @ 09:01 by Rylee Zaldivar) Mother Cancer Hypertension Ovarian cancer Father History of heart attack Brother No problems noted. Brother Heart disease Sister No problems noted. Sister No problems noted. Son Asthma Son Asthma Daughter Asthma Social History Are you a primary body care manager to a significant other at home: No Do you presently have visiting nurse or other home services: No Alcohol intake: former Patient Tobacco Use Status: Former Tobacco user Quit Date: 4 yrs ago Tobacco use type: Cigarette Years Smoked: 20 service: No Current occupational status: employed Telehealth Telehealth Telehealth Platform: Telephone Location of provider rendering services: other Location of patient: other Patient Identification confirmed using: Name, : Yes Telehealth method: voice only Patient verbally consented to treatment: Yes Patient verbally consented to billing insurance company: Yes Patient informed of any privacy concerns related to visit: Yes Minutes spent on Phone/Video with Pt.: 18 Assessment & Plan Assessment & Plan (1) 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 However she is dealing with episodes of hypoglycemia despite trying to get a mix of protein and carbohydrates with every meal. 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 Will place referral to endocrinology to rule out other reasons for hypoglycemia. Pt's insurance coverage requires the following prior to approval for panniculectomy: - stable weight for 6 months prior to the request - interference with activities of daily living or recurrent rash for over 12 months Pt continues to have excess skin of pannus causing rashes & pain, impacting her quality of life and limiting her physical function. Pt now has stable weight for more than 6 months after surgery. Rashes were first documented in July 2021. Pt has weights documented in [facility] that have remained within 5% variability over the past 6 months. She will continue clotrimazole cream for rashes as well as supportive care of keeping the area clean and dry, daily showers, compressive clothing for comfort if needed. RTC 6 weeks in person for physican exam, and can consider submission to insurance for panniculectomy. Patient is overweight and with ongoing problems of excess skin of pannus, arms, and legs. and is not considered stable at this time. I spent a total of 30 minutes reviewing/updating records, examining the patient and counseling the pa tient on weight management as detailed above. Orders: Referrals Endocrinology Referral K91.2 - Postsurgical malabsorption, not elsewhere classified
[2023-09-01 10:45] VITALS: BMI 26.6
== END 2023-09-01 11:02 | disposition home or self-care (01) ==
LOC: HO.HBS 10:45
PROVIDERS: PCP Nurse Practitioner Family; Visit Provider Physician Assistant Surgical
DX: K91.2 Postsurgical malabsorption, not elsewhere classified (principal); L98.7 Excessive and redundant skin and subcutaneous tissue; E66.3 Overweight; Z98.84 Bariatric surgery status
CPT/HCPCS: 99214

== ENCOUNTER → 2023-09-01 10:45 | Outpatient (BNVA) | payer OTHER, SELFPAY | PROVIDERS: PCP Nurse Practitioner Family; Visit Provider Physician Assistant Surgical | DX: K91.2 Postsurgical malabsorption, not elsewhere classified (principal) ==

== ENCOUNTER 2023-09-11 09:18 | Outpatient (AMB) | payer OTHER, SELFPAY ==
[2023-09-11 09:20] VITALS: BP 96/76; PULSE 84; BMI 27.5
--- NOTE | 2023-09-11 09:20 | A.OFFVIS_ITS ---
Vital Signs 09/11/23 09:20 Height 5 ft 5 in Weight 165 lb 2.02 oz BMI 27.5 BP 96/76 Blood Pressure Location Lt brachial Position Sitting Pulse 84 Pulse Source Pulse Oximeter Intake Visit Reasons: Hypoglycemia-confirmed Intake Note: Patient present today for hypoglycemia. Random Glucose: mg/dl 83 Air Quality Chemist Required: No Accompanied by: self Allergies shellfish derived Allergy (Severe, Verified 09/11/23 09:27) Anaphylaxis Medication List - Last Reconciled 09/11/23 by Florin Beltran MD albuterol sulfate 90 mcg/actuation (ProAir HFA) 2 puffs inhalation Q6H PRN ascorbic acid (vitamin C) 250 mg PO DAILY 30 days clonazepam 2 mg PO BID PRN clotrimazole 1% 1 appl topical BID docusate sodium (Colace) 100 mg PO BID PRN 30 days ferrous sulfate 325 mg PO DAILY 30 days magnesium oxide 400 mg PO BEDTIME 30 days apjaltftwesk-zgh-nhtv-FA-vit K 45 mg iron- 800 mcg-120 mcg (Bariatric Multivitamins) 45 caps PO DAILY propranolol 10 mg PO BID PRN riboflavin (vitamin B2) 400 mg PO DAILY 30 days ubrogepant (Ubrelvy) 50 - 100 mg (0.5 - 1 x 100 mg) PO ONCE PRN 30 days zolpidem (Ambien) 5 mg PO BEDTIME PRN HPI Comments Details: This is a 37-year-old white female presenting with symptoms of hypoglycemia. Symptoms occur prior to eating Symptoms are near-syncope . Patient did have a glucose of 51 on 08/22/2023 no sx at time . Denies any symptoms of adrenal insufficiency. Episodes do not occurred while sleeping.Sleeve gastrectomy in 2020. Has an episode of syncope. 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 Worse when eating simple carbs . Had sx of palpiatations and sweating when sleeping and eating corrected episode . Takes propanolol but not every day for migraines. [facility] Medical History (Updated 09/01/23 @ 10:40 by DINO Matias) COVID-19 vaccine series completed Asthma Migraines Anxiety Depression Pre-diabetes Insomnia Morbid obesity due to excess calories Surgical History History of salpingectomy History of removal of ovarian cyst History of repair of hiatal hernia Status post laparoscopic sleeve gastrectomy History of tubal ligation Hx of section Hx of cholecystectomy Family History (Updated 08/22/23 @ 09:01 by Rylee Zaldivar) Mother Cancer Hypertension Ovarian cancer Father History of heart attack Brother No problems noted. Brother Heart disease Sister No problems noted. Sister No problems noted. Son Asthma Son Asthma Daughter Asthma Social History Are you a primary medical care administrator to a significant other at home: No Do you presently have visiting nurse or other home services: No Alcohol intake: former Patient Tobacco Use Status: Former Tobacco user Quit Date: 4 yrs ago Tobacco use type: Cigarette Years Smoked: 20 service: No Current occupational status: employed Physical Exam Vital Signs: Last Vital Signs Pulse 84 09/11/23 09:20 BP 96/76 09/11/23 09:20 BMI result Body Mass Index 27.5 Const Other: Thyroid gland is normal size weighs about 15 g . There are no thyroid nodules palpated Assessment & Plan Assessment & Plan (1) Hypoglycemia after GI (gastrointestinal) surgery: Code(s): K91.2 - Postsurgical malabsorption, not elsewhere classified Category: Medical Plan: This is a 37-year-old white female with a history of sleeve gastrectomy now experiencing symptoms of hypoglycemia.Will need to prove Whipple's Triad Plan is to check a fingerstick now as pt was having sx. Fingerstick was 83 . Will get labs glucose , C-Peptide , insulin, pro-insulin when sx occur to r/o endogenous hyperinsulinemia. If pt fulfills Whipple's Triad , may need inpatient fast to r/o causes other than post-bariatric hypoglycemia . I also referred her to a mathematics improvement teacher. Lastly, I made a referral to Dr. Peters, a specialist in hypoglycemia at [facility] in [place] Orders: Orders Cortisol Random Today K91.2 - Postsurgical malabsorption, not elsewhere classified C Peptide Today K91.2 - Postsurgical malabsorption, not elsewhere classified Glucose Random Today K91.2 - Postsurgical malabsorption, not elsewhere classified Proinsulin Today K91.2 - Postsurgical malabsorption, not elsewhere classified Insulin Today K91.2 - Postsurgical malabsorption, not elsewhere classified Referrals Nutrition/Dietitian Referral K91.2 - Postsurgical malabsorption, not elsewhere classified Endocrinology Referral K91.2 - Postsurgical malabsorption, not elsewhere classified Medications: New blood-glucose sensor (FreeStyle Branden 3 Sensor device) As directed change every 14 days 2 ea 4RF Coding Level of Care Code New Pt Level 4 (78411) Diagnoses Hypoglycemia after GI (gastrointestinal) surgery K91.2
[2023-09-11 09:59] LABS: Glucose, Whole Blood 83 mg/dL (60-115)
== END 2023-09-11 10:10 | disposition home or self-care (01) ==
PROVIDERS: PCP Nurse Practitioner Family; Visit Provider Internal Medicine Endocrinology, Diabetes & Metabolism
DX: K91.2 Postsurgical malabsorption, not elsewhere classified (principal)
CPT/HCPCS: 99204

== ENCOUNTER 2023-09-11 09:18 | Outpatient (REF) | payer OTHER, SELFPAY ==
[2023-09-11 14:04] LABS: Glucose Random 81 mg/dL (60-115)
[2023-09-11 14:18] LABS: Insulin 3 uU/mL (2-29)
[2023-09-11 14:22] LABS: Cortisol Random 7.8 ug/dL
[2023-09-12 06:43] LABS: C Peptide 1.23 ng/mL (0.80-3.85)
[2023-09-24 03:44] LABS: Proinsulin <4.0 pmol/L (< OR = 18.8)
== END 2023-09-11 09:19 | disposition home or self-care (01) ==
LOC: HO.LAB 09:18
PROVIDERS: PCP Nurse Practitioner Family; Visit Provider Internal Medicine Endocrinology, Diabetes & Metabolism
DX: K91.2 Postsurgical malabsorption, not elsewhere classified (principal)
CPT/HCPCS: 36415; 82533; 82947; 83525; 84206; 84681; 99202

== ENCOUNTER 2023-10-20 15:00 | Outpatient (AMB) | payer OTHER, SELFPAY ==
[2023-10-20 15:14] VITALS: BP 120/70; PULSE 57; BMI 29.7
--- NOTE | 2023-10-20 15:14 | A.OFFVIS_ITS ---
Vital Signs 10/20/23 15:14 Height 5 ft 5 in Weight 178 lb 9.191 oz BMI 29.7 BP 120/70 Blood Pressure Location Rt brachial Position Sitting Pulse 57 Intake Visit Reasons: 1 year follow up Accounts Payable Clerk Required: No Accompanied by: Self / Same As Patient Allergies shellfish derived Allergy (Severe, Verified 09/11/23 09:27) Anaphylaxis Medication List - Last Reconciled 10/20/23 by Leon Go MD albuterol sulfate 90 mcg/actuation (ProAir HFA) 2 puffs inhalation Q6H PRN ascorbic acid (vitamin C) 250 mg PO DAILY 30 days blood-glucose sensor (FreeStyle Branden 3 Sensor device) As directed change every 14 days clonazepam 2 mg PO BID PRN clotrimazole 1% 1 appl topical BID docusate sodium (Colace) 100 mg PO BID PRN 30 days ferrous sulfate 325 mg PO DAILY 30 days magnesium oxide 400 mg PO BEDTIME 30 days gwgnyayxyilf-gii-tbel-FA-vit K 45 mg iron- 800 mcg-120 mcg (Bariatric Multivitamins) 45 caps PO DAILY propranolol 10 mg PO BID PRN riboflavin (vitamin B2) 400 mg PO DAILY 30 days ubrogepant (Ubrelvy) 50 - 100 mg (0.5 - 1 x 100 mg) PO ONCE PRN 30 days zolpidem (Ambien) 5 mg PO BEDTIME PRN HPI Comments Details: Pleasant 37 year female here for follow-up. She was seen for chest pain and underwent exercise stress test. She was able to exercise for 6 minutes 7 seconds achieving a workload of 7.1 Mets without any EKG changes or some chest pain. She was diagnosed with anemia due to iron deficiency. She had fatigue and dyspnea also. She was treated for anemia with iron supplementation and had improvement in on her symptoms. She is returning and continues to feel good. She has not had any repeat blood workup recently. She is working as a trucker. She said she had some palpitations lasting for few seconds other day but generally has been feeling great. In particular no chest pain or shortness of breath anymore. 10/20/2023: She returns for follow-up. She is saying she is anemic again and has been getting iron infusions. She also has been hypoglycemic and is being worked up for insulinoma. She will be admitted to [facility] for a 72 hour fast. She is noticed that after hypoglycemic episodes she gets some chest discomfort. No exertional complaints. Previously with anemia she had some discomfort which improved as the anemia improved. [facility] Medical History (Updated 09/01/23 @ 10:40 by DINO Matias) COVID-19 vaccine series completed Asthma Migraines Anxiety Depression Pre-diabetes Insomnia Morbid obesity due to excess calories Surgical History History of salpingectomy History of removal of ovarian cyst History of repair of hiatal hernia Status post laparoscopic sleeve gastrectomy History of tubal ligation Hx of section Hx of cholecystectomy Family History Mother Cancer Hypertension Ovarian cancer Father History of heart attack Brother No problems noted. Brother Heart disease Sister No problems noted. Sister No problems noted. Son Asthma Son Asthma Daughter Asthma Social History Are you a primary direct care counselor to a significant other at home: No Do you presently have visiting nurse or other home services: No Alcohol intake: former Patient Tobacco Use Status: Former Tobacco user Tobacco use type: Cigarette Years Smoked: 20 service: No Current occupational status: employed Review of Systems Const Denies chills, Denies fatigue, Denies fever(s), Denies frequent falls, Denies weakness, Denies weight gain and Denies weight loss ENT Denies dizziness Card Denies chest pain, Denies leg edema, Denies lightheadedness, Denies palpitations, Denies dyspnea and Denies dyspnea on exertion Resp Denies cough, Denies dyspnea and Denies dyspnea on exertion GI Denies hematochezia Musc Denies abnormal gait, Denies muscle weakness, Denies numbness, Denies radiating pain into limb and Denies tingling Neuro Denies abnormal gait, Denies dizziness, Denies frequent falls, Denies numbness, Denies tingling and Denies weakness Endo Denies fatigue and Denies palpitations Physical Exam Vital Signs: Last Vital Signs Pulse 57 10/20/23 15:14 BP 120/70 10/20/23 15:14 BMI result Body Mass Index 29.7 GENERAL APPEARANCE: in no acute distress, pleasant. NECK: no carotid bruit, no jugular venous distention. SKIN: no suspicious lesions, warm and dry. HEART: no murmurs, regular rate and rhythm. LUNGS: clear to auscultation bilaterally. ABDOMEN: soft, nontender. EXTREMITIES: no edema. PERIPHERAL PULSES: equal. NEUROLOGIC: No gross deficits, AAO X 3 Office Procedures EKG Details: Sinus bradycardia 57/min,QTc 383 msec. [id number], Complete Assessment & Plan Assessment & Plan (1) Chest pain: Code(s): R07.9 - Chest pain, unspecified Category: Medical (2) Iron deficiency: Code(s): E61.1 - Iron deficiency Category: Medical Plan 37-year-old female who is here for follow-up. She was previously seen for chest discomfort and palpitations. She was found to be anemic and with anemia treatment symptoms improved. Family history positive for coronary artery disease and she wished to follow-up with us and has been seeing us once a year. No significant cardiovascular issues on follow-up. She has been anemic again and is receiving iron infusions. She also has been noticed to be hypoglycemic at times and is being worked up for insulinoma. She will follow-up with us in 1 year. Thank you for allowing me to participate in the care of your patient. Please feel free to contact me if you have any questions. Coding Level of Care Code Est Pt Level 3 (34499) Diagnoses Chest pain R07.9 Iron deficiency E61.1 CPT Codes EKG - CPT: 64428-[id number], Complete ([id number])
== END 2023-10-20 15:57 | disposition home or self-care (01) ==
PROVIDERS: PCP Nurse Practitioner Family; Visit Provider Internal Medicine Cardiovascular Disease
DX: R07.9 Chest pain, unspecified (principal); E61.1 Iron deficiency
CPT/HCPCS: 93010; 99213

== ENCOUNTER → 2023-10-20 15:00 | Outpatient (BNVA) | payer OTHER, SELFPAY | PROVIDERS: PCP Nurse Practitioner Family; Visit Provider Internal Medicine Cardiovascular Disease | DX: R07.9 Chest pain, unspecified (principal); E61.1 Iron deficiency; R00.1 Bradycardia, unspecified | CPT/HCPCS: 93005; 99212 ==

== ENCOUNTER 2023-11-04 07:35 | Outpatient (AMB) | payer OTHER, SELFPAY ==
--- NOTE | 2023-11-04 07:35 | A.OFFVIS_ITS ---
Intake Visit Reasons: 3 mo f/u-CONF Intake Note: Presents for 3 month follow up. Allergies shellfish derived Allergy (Severe, Verified 11/04/23 07:36) Anaphylaxis Medication List - Last Reconciled 11/04/23 by ROBERTO Herzog albuterol sulfate 90 mcg/actuation (ProAir HFA) 2 puffs inhalation Q6H PRN ascorbic acid (vitamin C) 250 mg PO DAILY 30 days blood-glucose sensor (FreeStyle Branden 3 Sensor device) As directed change every 14 days clonazepam 2 mg PO BID PRN clotrimazole 1% 1 appl topical BID docusate sodium (Colace) 100 mg PO BID PRN 30 days ferrous sulfate 325 mg PO DAILY 30 days magnesium oxide 400 mg PO BEDTIME 30 days oukntfmukaml-xvn-nckh-FA-vit K 45 mg iron- 800 mcg-120 mcg (Bariatric Multivitamins) 45 caps PO DAILY propranolol 10 mg PO BID PRN riboflavin (vitamin B2) 400 mg PO DAILY 30 days ubrogepant (Ubrelvy) 50 - 100 mg (0.5 - 1 x 100 mg) PO ONCE PRN 30 days zolpidem (Ambien) 5 mg PO BEDTIME PRN HPI Comments Details: 38-yr-old female presents for f/u televisit visit via [employer] Pt reports she lat week, she was admitted to [facility] for in-pt 72 hour fast test to r/o insulinoma d/t recurrent hypoglycemia.. She states she she failed the test, as her BG dropped to 50s in the last 2 hrs of the test. Pt states her retail customer service representative has advised her to undergoo pancreatic work-up- though she is not sure of specifics. She was told to stop her prn propranolol- but was not sure why. She has had hematology consult- plan in place to further address ROMMEL. States she has been having 2 migraine days per month, which are responding well to Ubrelvy. She did not have brain MRI yet. Baseline headache characteristics: Aura: Left eye- sees spots. Now within a minute, she starts feeling like she is looking through a kaleidoscope and then cannot see anything- like something is blocking her vision- this lasts about 30 min. Mild or moderate or severe Pressure in retro-orbital, temporal, frontal and job regions. Will feel like her eyes will pop out a/wPhotophobia, phonophobia, osmophobia, severe nausea, spinning dizziness, fatigue, activity intolerance, brain fog. Denies focal weakness, red eye, droopy eyelid, runny nose, or congestion. Postdrome: Lingering symptoms [facility] Medical History (Updated 09/01/23 @ 10:40 by DINO Matias) COVID-19 vaccine series completed Asthma Migraines Anxiety Depression Pre-diabetes Insomnia Morbid obesity due to excess calories Surgical History History of salpingectomy History of removal of ovarian cyst History of repair of hiatal hernia Status post laparoscopic sleeve gastrectomy History of tubal ligation Hx of section Hx of cholecystectomy Family History Mother Cancer Hypertension Ovarian cancer Father History of heart attack Brother No problems noted. Brother Heart disease Sister No problems noted. Sister No problems noted. Son Asthma Son Asthma Daughter Asthma Social History Are you a primary life care planner to a significant other at home: No Do you presently have visiting nurse or other home services: No Alcohol intake: former Patient Tobacco Use Status: Former Tobacco user Tobacco use type: Cigarette Years Smoked: 20 service: No Current occupational status: employed Physical Exam Const General: cooperative and no acute distress Orientation/consciousness: patient oriented x3 Resp Effort & Inspection: normal respiratory effort and able to speak in complete sentences Neuro General: patient oriented x3 Cognition (Neuro): normal cognition Psych Mental Status: mental status grossly normal Speech and movement: Clear speech present Affect: normal affect Attitude: cooperative Telehealth Telehealth Telehealth Platform: Telephone Location of provider rendering services: practice address Location of patient: address on file Patient Identification confirmed using: Name, : Yes Telehealth method: voice only Patient verbally consented to treatment: Yes Patient verbally consented to billing insurance company: Yes Patient informed of any privacy concerns related to visit: Yes Minutes spent on Phone/Video with Pt.: 22 Assessment & Plan Assessment & Plan (1) Migraine with aura: Code(s): G43.109 - Migraine with aura, not intractable, without status migrainosus Category: Medical (2) Visual aura: Code(s): H53.9 - Unspecified visual disturbance Category: Medical (3) Numbness of fingers of both hands: Comment: fingertips- in days prior to migraine attack Code(s): R20.0 - Anesthesia of skin Category: Medical Plan Will again follow up on status of brain MRI with and without contrast to assess for secondary etiologies of headache associated with visual changes, paresthesias. f/u hematology as scheduled. ? For overall headache management: Optimize good self-care, including but not limited to maintaining a healthy diet, adequate fluid intake, adequate sleep, and engaging in regular physical activity. Track headaches. ? For acute headache treatment: Continue Ubrogepant 100mg tab, 1/2 - 1 tab (50-100mg) at onset of headache, may repeat in 2 hours. Max of 2 tabs (200mg) per 24 hours. May adjunct with OTC Tylenol 650mg q 4 hours, Ibuprofen 600mg q 6 hours, or Naproxen 440mg q 12 hrs prn. May use Zofran p.r.n. Previous acute migraine medication trials: Sumatriptan caused anxiety. Naratriptan was not tolerated. Acute migraine medication contraindications: NSAIDs due to history of gastric sleeve surgery. ? 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 ? Pt to follow-up in 3 months or sooner prn. Coding Level of Care Code Tele Est Pt Level 4 (14444) Diagnoses Migraine with aura G43.109 Visual aura H53.9 Numbness of fingers of both hands R20.0
== END 2023-11-05 08:13 | disposition home or self-care (01) ==
LOC: HO.HSMS 07:35
PROVIDERS: PCP Nurse Practitioner Family; Visit Provider Nurse Practitioner Family
DX: G43.109 Migraine with aura, not intractable, without status migrainosus (principal); H53.9 Unspecified visual disturbance; R20.0 Anesthesia of skin
CPT/HCPCS: 99214

== ENCOUNTER → 2023-11-04 07:35 | Outpatient (BNVA) | payer OTHER, SELFPAY | PROVIDERS: PCP Nurse Practitioner Family; Visit Provider Nurse Practitioner Family ==

== ENCOUNTER 2025-03-29 08:00 | Outpatient (AMB) | payer OTHER, SELFPAY ==
--- NOTE | 2025-03-29 08:14 | MHC.OFFVISWM ---
VS Expanded 03/29/25 08:16 Height 5 ft 5 in Weight 214 lb BMI 35.6 Intake Visit Reasons: TV PO LSG 01/31/21 Allergies shellfish derived Allergy (Severe, Verified 03/11/24 14:51) Anaphylaxis Medication List - Last Reconciled 03/29/25 by DINO Matias albuterol sulfate 90 mcg/actuation (ProAir HFA) 2 puffs inhalation Q6H PRN blood-glucose sensor (FreeStyle Branden 3 Sensor device) As directed change every 14 days clotrimazole 1% 1 appl topical BID docusate sodium (Colace) 100 mg PO BID PRN 30 days gabapentin 300 mg PO DAILY PRN voldywmmjxzf-vti-ffjv-FA-vit K 45 mg iron- 800 mcg-120 mcg (Bariatric Multivitamins) 45 caps PO DAILY HPI Comments Details: This is a 37 yo female who is s/p LSG 01/31/2021. Presents for 4 year 2 month post op visit. She reports weight gain recently with current weight 214lbs. Last weight in this office was 160lbs in August 2023. Her PCP told her to contact us after she continued to experience some episodes of hypoglycemia. She went to [facility] (instead of following up with referral to [place] per Dr Beltran), saw a manager trust there but she did not find this helpful. They gave her more carbohydrates than she was used to and this caused a lot of blood sugar fluctuations. She has a physical job including driving and deliveries. Out of work currently because she hurt her back. Was started on Trulicity for some reason but this made blood sugar issues worse. Present meal plan includes: Has restarted protein shake in AM (CorePower 26g- 1 hour to drink), Two Good yogurt for snack with granola, lunch is chicken breast and rice, and dinner is similar. She will take PB crackers when blood sugar is low. Reports that during her work day her blood sugar drops constantly . Down to 50s. Has a sensor that measures. Taking MVI and calcium. Has more recently transitioned back to more protein shakes after experiencing a few episodes of hypoglycemia. Reports that she continues to have problems with her pannus, foul smelling rashes of skin under pannus after working or exercise, with pannus continuing to cause discomfort with movement and while wearing certain clothes. Has to use wipes to place in skin folds to collect moisture and avoid odor. Has to wear compressive pants to hold skin in place. Has Rx for clotrimazole when rashes worsen for which she needed a refill from PCP. Difficulty bending down / tying shoes due to discomfort. She also has noticed problems with excess skin of both arms and legs. Friction occurs between skin of legs and between skin of arms/body which is painful. She also gets rashes on lateral sides of breasts due to excess skin of arms rubbing against. Extra skin is uncomfortable with movement/exercise. Has to wear long tight sleeves and compressive pants around thighs to prevent friction and hold skin in place. [facility] Medical History COVID-19 vaccine series completed Asthma Migraines Anxiety Depression Pre-diabetes Insomnia Morbid obesity due to excess calories Surgical History History of salpingectomy History of removal of ovarian cyst History of repair of hiatal hernia Status post laparoscopic sleeve gastrectomy History of tubal ligation Hx of section Hx of cholecystectomy Family History Mother Cancer Hypertension Ovarian cancer Father History of heart attack Brother No problems noted. Brother Heart disease Sister No problems noted. Sister No problems noted. Son Asthma Son Asthma Daughter Asthma Social History Are you a primary respiratory care program director to a significant other at home: No Do you presently have visiting nurse or other home services: No Alcohol intake: former Patient Tobacco Use Status: Former Tobacco user Tobacco use type: Cigarette Years Smoked: 20 service: No Current occupational status: employed Physical Exam Vital Signs: BMI result Body Mass Index 35.6 Telehealth Telehealth Telehealth Platform: Telephone Location of provider rendering services: practice address Location of patient: address on file Patient Identification confirmed using: Name, : Yes Telehealth method: voice only Patient verbally consented to treatment: Yes Patient verbally consented to billing insurance company: Yes Patient informed of any privacy concerns related to visit: Yes Minutes spent on Phone/Video with Pt.: 17 Assessment & Plan Assessment & Plan (1) Status post laparoscopic sleeve gastrectomy: Code(s): Z98.84 - Bariatric surgery status Category: Surgical (2) Hypoglycemia after GI (gastrointestinal) surgery: Code(s): K91.2 - Postsurgical malabsorption, not elsewhere classified Category: Medical (3) Obesity: Code(s): E66.9 - Obesity, unspecified Category: Medical Plan 6am half Corepower bottle with a few oz UAM to make 8oz total volume 10am lao yogurt, cottage cheese, bar, or half shake. Can add berries to yogurt 2am shake or bar 5pm dinner - 6f protein, up to 6f veg, and 4f complex carb like potatoes half shake or half bar before bed to prevent lows overnight Reminded pt to take 2 hours to drink shake or eat bar. She will monitor blood sugars closely over the next few days and let me know if she has any lows so we can work on correcting those. Labs ordered. RTC 4w. Orders: Orders Insulin Today K91.2 - Postsurgical malabsorption, not elsewhere classified, Z98.84 - Bariatric surgery status Lipid Panel Today K91.2 - Postsurgical malabsorption, not elsewhere classified, Z98.84 - Bariatric surgery status Zinc Today K91.2 - Postsurgical malabsorption, not elsewhere classified, Z98.84 - Bariatric surgery status Vitamin B1 Today K91.2 - Postsurgical malabsorption, not elsewhere classified, Z98.84 - Bariatric surgery status Ferritin Today K91.2 - Postsurgical malabsorption, not elsewhere classified, Z98.84 - Bariatric surgery status Complete Blood Count Auto Diff Today K91.2 - Postsurgical malabsorption, not elsewhere classified, Z98.84 - Bariatric surgery status IRON PROFILE Today K91.2 - Postsurgical malabsorption, not elsewhere classified, Z98.84 - Bariatric surgery status Vitamin B12 and Folate Today K91.2 - Postsurgical malabsorption, not elsewhere classified, Z98.84 - Bariatric surgery status Comprehensive Met. Panel Today K91.2 - Postsurgical malabsorption, not elsewhere classified, Z98.84 - Bariatric surgery status C Reactive Protein Today K91.2 - Postsurgical malabsorption, not elsewhere classified, Z98.84 - Bariatric surgery status Vitamin A Today K91.2 - Postsurgical malabsorption, not elsewhere classified, Z98.84 - Bariatric surgery status Vitamin D 25-OH Total Today K91.2 - Postsurgical malabsorption, not elsewhere classified, Z98.84 - Bariatric surgery status TSH reflex Free T4 Today K91.2 - Postsurgical malabsorption, not elsewhere classified, Z98.84 - Bariatric surgery status Hemoglobin A1c Today K91.2 - Postsurgical malabsorption, not elsewhere classified, Z98.84 - Bariatric surgery status
[2025-03-29 08:16] VITALS: BMI 35.6
== END 2025-03-29 08:43 | disposition home or self-care (01) ==
LOC: HO.HBS 08:19
PROVIDERS: PCP Nurse Practitioner Family; Visit Provider Physician Assistant Surgical
DX: E66.9 Obesity, unspecified (principal); Z68.35 Body mass index [BMI] 35.0-35.9, adult; K91.2 Postsurgical malabsorption, not elsewhere classified; Z90.3 Acquired absence of stomach [part of]; Z98.84 Bariatric surgery status
CPT/HCPCS: 99214

== ENCOUNTER 2025-04-06 06:45 | Outpatient (REF) | payer OTHER, SELFPAY ==
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
--- OUTSIDE RECORDS SUMMARY | 2025-04-06 06:48 | XMS_ITS | Clinical Summary ---
Author Organization [facility] Address [address] [place] [phone] Phone Care Team Providers Care Broth Mixer Name Role Phone Waqas Pugh NP Primary Care Provi savanah Encounters Date Type Department Care Team Description 03/28/2025 Telephone [facility] Orthopedics & Sports Medicine [address] [place] [phone] Deepika Ferrara MD waiting WC auth 03/28/2025 Telephone [facility] Orthopedics & Sports Medicine [address] [place] [phone] Deepika Ferrara MD waiting [facility] records 03/25/2025 Orders Only [facility] [address] [place] [address] Self-Referred, Patient Acute pain of right knee (Primary Dx) 03/25/2025 Orders Only [facility] [address] [place] [address] Self-Referred, Patient Acute right-sided low back pain, unspecified whether sciatica present (Primary Dx) from Last 3 Months Social History Tobacco Use Types Packs/Day Years Used Date Smoking Tobacco: Never Assessed Education Answer Date Recorded Are you interested in more education? Not on sully e 03/25/2025 Are you concerned about learning? Not on file 03/25/2025 No 03/25/2025 No 03/25/2025 Digital Access Answer Date Recorded No 03/25/2025 No 03/25/2025 Reliable internet access at home? Not on file 03/25/2025 Device with a working camera? Not on file 11 / Comments Unknown Sex and Gender Information Value Date Recorded Sex Assigned at Not on file Legal Sex Female 8:15 AM EDT Gender Identity Not on file Sexual Orientation Not on file Plan of Treatment Health Maintenance Due Date Last Done Comments DEPRESSION SCREENING 1995 SMOKING Hx and SMOKELESS TOBACCO SCREENING 10/22/1996 HEPATITIS C SCREENING 10/22/2001 HIV ONE-TIME SCREENING (18-65 YEARS) 10/22/2001 PAP SMEAR 10/22/2004 MAMMOGRAM 2023 INFLUENZA VACCINE (#1) 2024 , 01/13/2020, 07/01/2018, Additional history exists COVID-19 VACCINE ( season) 2025 09/09/2020, 08/19/2020 Adult Td,Tdap Booster 09/06/2031 09/05/2021, 017 PNEUMOCOCCAL VACCINES (0-49 years) Aged Out 04/18/2017 No longer eligible based on patient's age to complete this topic HEPATITIS A VACCINES Aged Out No long er eligible based on patient's age to complete this topic HIB VACCINES Aged Out No longer eligi ble based on patient's age to complete this topic MENINGOCOCCAL VACCINES (ACWY) Aged Out No longer eligible based on patient's age to complete this topic MENINGOCOCCAL VACCINES (B) Aged Out N o longer eligible based on patient's age to complete this topic Medical Devices Not on file [facility] RAND INSURANCE Care Teams Broth Mixer Relationship Specialty Start Date End Date Waqas Pugh NP [address] [place] [address] PCP - General Nurse Practitioner 07/27/24 Additional Source Comments The information contained in this document represents components of the legal health record. It is not the complete legal health record.[facility]
--- OUTSIDE RECORDS SUMMARY | 2025-04-06 06:48 | XMS_ITS | Encounter Summary ---
Author Organization [facility] Address [address] [place] [address] Phone Care Team Providers Care Sales Planner Name Role Phone Waqas Pugh NP Primary Care Provi savanah Reason for Visit * Reason Onset Date Comments waiting [facility] records 03/28/2025 Encounter Details Date Type Department Care Team ([facility] Contact Info) Description 03/28/2025 Telephone [facility] Orthopedics & Sports Medicine [address] [place] [phone] Deepika Ferrara MD [address] [place] [address] Orthopedics & Sports Medicine, [place] [address] [email or web address] waiting [facility] records Social History Tobacco Use Types Packs/Day Years [...] with a working camera? Not on file Comments Unknown Sex and Gender Information Value Date Recorded Sex Assigned at Not on file Legal Sex Female 8:15 AM EDT Gender Identity Not on file Sexual Orientation Not on file documented as of this encounter Progress Notes * Hanna Carson - 03/28/2025 3:05 PM EST Release faxed to [facility] for records. Once recd reschedule appt w/Dr Bush documented in this encounter Plan of Treatment Not on file documented as of this encounter Visit Diagnoses Not on filedocumented in this encounter Care Teams Sales Planner Relationship Specialty Start Date End Date Waqas Pugh NP [address] [place] [address] PCP - General Nurse Practitioner 07/27/24 documented as of this encounter Additional Source Comments The information contained in this document represents components of the legal health record. It is not the complete legal health record.[facility]
--- OUTSIDE RECORDS SUMMARY | 2025-04-06 06:48 | XMS_ITS | Encounter Summary ---
Author Organization [facility] Address [address] [place] [address] Phone Care Team Providers Care Supervisor Advice Name Role Phone Waqas Pugh NP Primary Care Provi savanah Reason for Visit * Reason Onset Date Comments waiting WC auth 03/28/2025 Encounter Details Date Type Department Care Team ([facility] Contact Info) Description 03/28/2025 Telephone [facility] Orthopedics & Sports Medicine [address] [place] [phone] Deepika Ferrara MD [address] [place] [address] Orthopedics & Sports Medicine, [facility] [place] [address] [email or web address] waiting WC auth Social History Tobacco Use Types Packs/Day Years [...] Progress Notes * Hanna Carson - 03/28/2025 3:19 PM EST ....Appointment is scheduled for TKelly, sent letter to request authorization for approval to Insurance Company. Information is listed below. Date of Injury: 07/21/24 Body Part: right knee Name of Insurance Company: Brian Claim Number: [id number] Single Pass Soil Stabilizer Operator: Munira Nick Adjusters Adjusters documented in this encounter Plan of Treatment Not on file documented as of this encounter Visit Diagnoses Not on filedocumented in this encounter Care Teams Supervisor Advice Relationship Specialty Start Date End Date Waqas Pugh NP [address] [place] [address] PCP - General Nurse Practitioner 07/27/24 documented as of this encounter Additional Source Comments The information contained in this document represents components of the legal health record. It is not the complete legal health record.[facility]
[2025-04-06 07:02] LABS: MANUAL DIFF FLAG NO
[2025-04-06 07:18] LABS: Hematocrit 34.5 % (37.0-47.0); Hemoglobin 11.2 g/dl (12.0-16.0); Imm Gran Abs Auto 0.02 X10*3/uL (0.00-0.03); Imm Gran Pct Auto 0.3 % (0.0-0.4); Lymphocytes Absolute Auto 2.6 X10*3/uL (1.2-4.9); Mean Corpuscular HGB Conc 32.5 g/dl (31.0-35.0); Mean Corpuscular Hemoglobin 27.4 pg (27.0-33.0); Mean Corpuscular Volume 84.4 fL (80.0-98.0); NRBC Abs Auto 0.000 X10*3/uL (0.0-0.012); NRBC Pct Auto 0.0 /100WBC (0.0-0.2); Platelet Count 315 X10*3/uL (160-400); Red Blood Count 4.09 X10*6/uL (4.20-5.50); White Blood Count 6.5 X10*3/uL (4.8-10.8)
[2025-04-06 08:02] LABS: Alanine Aminotransferase 12 U/L (0-31); Albumin Level 4.0 g/dL (3.5-5.0); Alkaline Phosphatase 74 U/L (39-117); Anion Gap 10 (12-20); Aspartate Amino Transferase 21 U/L (5-31); Blood Urea Nitrogen 15 mg/dL (9-16); Calcium 9.1 mg/dL (8.4-10.2); Carbon Dioxide 26 mmol/L (22-29); Chloride 108 mmol/L (96-108); Cholesterol 205 mg/dL (<200); Estimated Glomerular Filt Rate > 60; HDL Cholesterol 67 mg/dL (>40); Iron 57 mcg/dL (30-160); Percent Iron Saturation 18 % (15-50); Potassium 4.2 mmol/L (3.3-5.1); Sodium 140 mmol/L (135-145); Total Iron Binding Capacity 316 mcg/dL (228-428); Total Protein 7.0 g/dL (6.5-8.0); Triglycerides 42 mg/dL (<150); Unsaturated Iron Binding 259 ug/dL
[2025-04-06 08:07] LABS: Hemoglobin A1C 74.1621 umol/L
[2025-04-06 08:27] LABS: Ferritin 11 ng/mL (10-250)
[2025-04-06 08:35] LABS: Folate 10.5 ng/mL (> or = 4.0); Vitamin B12 600 pg/mL (200-900)
== END 2025-04-06 06:46 | disposition home or self-care (01) ==
LOC: HO.LAB 06:45
PROVIDERS: PCP Nurse Practitioner Family; Visit Provider Physician Assistant Surgical
DX: Z13.29 Encounter for screening for other suspected endocrine disorder (principal); K91.2 Postsurgical malabsorption, not elsewhere classified; Z98.84 Bariatric surgery status
CPT/HCPCS: 36415; 80053; 80061; 82306; 82607; 82728; 82746; 83036; 83525; 83540; 84425; 84443; 84590; 84630; 85025; 86140

== ENCOUNTER 2025-04-22 09:15 | Outpatient (AMB) | payer OTHER, SELFPAY ==
--- NOTE | 2025-04-22 09:26 | A.OFFVIS_ITS ---
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 Patient was referred by [facility] 03/30/25 at their visit she states she pulled her lower back at work lifting a heavy box and is now having pain radiate down to her right leg. At their visit she had X rays done on 03/26/25. At today's visit she states that she has a history of right knee pain and when she went to lift a heavy box she had a sharp pain that radiates up the right leg into the lower back. 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 Patient wanted to note that she is already being seen for the right knee off site. She noted that she has numbness and tingling constantly in the lower back down the right leg after the incident. Patient added that her right leg gets so numb that she feels like her leg is not there and now the numbness is radiating into the right foot, big toe. She states that for the past three weeks she has been using a cane to help with her mobility due to a fall, she reports that her right leg gave out. Pain scale- 4 Allergies shellfish derived Allergy (Severe, Verified 03/11/24 14:51) Anaphylaxis Medication List - Last Reconciled 04/22/25 by Crystal Calhoun MD albuterol sulfate 90 mcg/actuation (ProAir HFA) 2 puffs inhalation Q6H PRN blood-glucose sensor (FreeStyle Branden 3 Sensor device) As directed change every 14 days clotrimazole 1% 1 appl topical BID docusate sodium (Colace) 100 mg PO BID PRN 30 days iezjzatywyet-qsf-fjlq-FA-vit K 45 mg iron- 800 mcg-120 mcg (Bariatric Multivitamins) 45 caps PO DAILY HPI Comments Details: Reviewed notes from [facility]. Reported that x-ray showed L4-5 spondylolisthesis first-degree(?) And decrease in disc space. Actual x-ray result was not available for my review. MRI ordered but pending. No PT yet. Pain is mostly midline/right sided/SI region when seated, when she gets up could radiate to right calf and thigh. Right big toe is numb. Weaker on right leg, has to grab right thigh up to move it, had fallen as well. Follows with [facility] for right knee, seen in February 2025. 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 She was given gabapentin 300mg BID but she only tried 3 days and stopped because she didn't think it was working. [facility] Medical History (Updated 04/22/25 @ 09:55 by Crystal Calhoun MD) COVID-19 vaccine series completed Asthma Migraines Anxiety Depression Pre-diabetes Insomnia Morbid obesity due to excess calories Surgical History History of salpingectomy History of removal of ovarian cyst History of repair of hiatal hernia Status post laparoscopic sleeve gastrectomy History of tubal ligation Hx of section Hx of cholecystectomy Family History Mother Cancer Hypertension Ovarian cancer Father History of heart attack Brother No problems noted. Brother Heart disease Sister No problems noted. Sister No problems noted. Son Asthma Son Asthma Daughter Asthma Social History Are you a primary resident care assistant to a significant other at home: No Do you presently have visiting nurse or other home services: No Alcohol intake: former Patient Tobacco Use Status: Former Tobacco user Tobacco use type: Cigarette Years Smoked: 20 service: No Current occupational status: employed Review of Systems Const All systems reviewed & are unremarkable except as noted in HPI and below Physical Exam Exam Exam: Constitutional: Patient appears to be in no acute distress, well nourished and well developed. Patient was appropriately conversant and oriented. Good historian. MSK: No specific abnormalities found on inspection of the spine and all extremities. Tender on right SI joint, piriformis and quadratus lumborum. Lumbar ROM was full. Bilateral hip, knee and ankle ROM WNL. No ligamentous laxity or crepitance. No increased effusion. Positive right slump sit. FABERE test positive right. Give-way weakness 3/5 on right hip flexion with pain. Right knee extension, dorsiflexion and EHL 5/5. No tenderness or effusion in right knee. Good patellar tracking. Neurological: Neurologic examination of the upper and lower extremities was nonfocal with intact sensation, muscle stretch reflexes and without focal motor deficits . Hogan?s negative bilaterally. Babinski was down going bilaterally. Clonus was negative. Gait is antalgic without loss of balance. Using cane. Vital Signs: BMI result Body Mass Index 34.1 Results Reviewed Results Reviewed: I reviewed records from the following: Reviewed notes from Assessment & Plan Assessment & Plan (1) Acute lumbar radiculopathy: Code(s): M54.16 - Radiculopathy, lumbar region Category: Medical (2) Spondylolisthesis, lumbar region: Code(s): M43.16 - Spondylolisthesis, lumbar region Category: Medical (3) Sacroiliac joint dysfunction of right side: Code(s): M53.3 - Sacrococcygeal disorders, not elsewhere classified Category: Medical Plan Acute right lumbar radiculopathy from disc herniation versus right SI joint dysfunction. Referring patient to physical therapy. She already stopped gabapentin so I will just change to Flexeril 10 mg q.h.s. or b.i.d. PRN. Discussed side effects and precautions. We will reorder MRI to investigate for disc herniation. May remain out of work for the next 4 weeks or until MRIs obtained. Assessment and plan discussed with patient, and patient was agreeable. All questions were answered thoroughly. Follow up after MRI. Crystal Calhoun MD, GABRIELLE Board Certified, [place] Board of Physical Medicine and Rehabilitation (ABPMR) Board Certified, [place] Board of Electrodiagnostic Medicine (ABEM) Orders: Orders PT Evaluation and Treatment Today M43.16 - Spondylolisthesis, lumbar region, M53.3 - Sacrococcygeal disorders, not elsewhere classified, M54.16 - Radiculopathy, lumbar region MR lumbar spine wo con Today M43.16 - Spondylolisthesis, lumbar region, M54.16 - Radiculopathy, lumbar region Medications: New cyclobenzaprine 10 mg PO BID PRN 60 tabs 0RF muscle spasm Coding Level of Care Code New Pt Level 4 (49860) Diagnoses Acute lumbar radiculopathy M54.16 Spondylolisthesis, lumbar region M43.16 Sacroiliac joint dysfunction of right side M53.3
[2025-04-22 09:38] VITALS: BMI 34.1
== END 2025-04-22 12:55 | disposition home or self-care (01) ==
PROVIDERS: PCP Nurse Practitioner Family; Visit Provider Physical Medicine & Rehabilitation
DX: M54.16 Radiculopathy, lumbar region (principal); M43.16 Spondylolisthesis, lumbar region; M53.3 Sacrococcygeal disorders, not elsewhere classified
CPT/HCPCS: 99204

== ENCOUNTER → 2025-04-22 09:15 | Outpatient (BNVA) | payer OTHER, SELFPAY | PROVIDERS: PCP Nurse Practitioner Family; Visit Provider Physical Medicine & Rehabilitation | DX: M43.16 Spondylolisthesis, lumbar region (principal); M54.16 Radiculopathy, lumbar region; M53.3 Sacrococcygeal disorders, not elsewhere classified | CPT/HCPCS: 99202 ==

== ENCOUNTER 2025-04-26 10:50 | Outpatient (AMB) | payer OTHER, SELFPAY ==
--- NOTE | 2025-04-26 10:34 | A.OFFVIS_ITS ---
VS Expanded 04/26/25 10:36 Height 5 ft 5 in Weight 205 lb BMI 34.1 Intake Visit Reasons: Phone PO LSG 01/31/21 Allergies shellfish derived Allergy (Severe, Verified 03/11/24 14:51) Anaphylaxis HPI Comments Details: This is a 39 yo female who is s/p LSG 01/31/2021. She reports weight gain recently with current weight 214lbs. Last weight in this office was 160lbs in August 2023. She did lose some weight since last OV with us. Her PCP told her to contact us after she continued to experience some episodes of hypoglycemia. She went to [facility] (instead of following up with referral to [place] per Dr Beltran), saw a allocation analyst there but she did not find this helpful. They gave her more carbohydrates than she was used to and this caused a lot of blood sugar fluctuations. She has a physical job including driving and deliveries. Out of work currently because she hurt her back. Was started on Trulicity for some reason but this made blood sugar issues worse. Present meal plan includes: At last visit I gave her the following meal plan: 6am half Corepower bottle with a few oz UAM to make 8oz total volume 10am american yogurt, cottage cheese, bar, or half shake. Can add berries to yogurt 2am shake or bar 5pm dinner - 6f protein, up to 6f veg, and 4f complex carb like potatoes half shake or half bar before bed to prevent lows overnight She feels that her blood sugars were well controlled since she was not working. However she notes recent hospitalization at [facility], was told she has a hernia, bu t unclear exactly where this hernia was. She had an endoscopy. She was told that her pain was perhaps food poisoning. Pain started after she ate chicken at [employer]. Pain has resolved now. She was given acid reflux med- pantoprazole. She is going to remain out of work for the time being. Still needs PT and MRI. Starts her normal workday at 2am. Reports that she continues to have problems with her pannus, foul smelling rashes of skin under pannus after working or exercise, with pannus continuing to cause discomfort with movement and while wearing certain clothes. Has to use wipes to place in skin folds to collect moisture and avoid odor. Has to wear compressive pants to hold skin in place. Has Rx for clotrimazole when rashes worsen for which she needed a refill from PCP. Difficulty bending down / tying shoes due to discomfort. She also has noticed problems with excess skin of both arms and legs. Friction occurs between skin of legs and between skin of arms/body which is painful. She also gets rashes on lateral sides of breasts due to excess skin of arms rubbing against. Extra skin is uncomfortable with movement/exercise. Has to wear long tight sleeves and compressive pants around thighs to prevent friction and hold skin in place. [facility] Medical History (Updated 04/22/25 @ 09:55 by Crystal Calhoun MD) COVID-19 vaccine series completed Asthma Migraines Anxiety Depression Pre-diabetes Insomnia Morbid obesity due to excess calories Surgical History History of salpingectomy History of removal of ovarian cyst History of repair of hiatal hernia Status post laparoscopic sleeve gastrectomy History of tubal ligation Hx of section Hx of cholecystectomy Family History Mother Cancer Hypertension Ovarian cancer Father History of heart attack Brother No problems noted. Brother Heart disease Sister No problems noted. Sister No problems noted. Son Asthma Son Asthma Daughter Asthma Social History Are you a primary animal caretaker supervisor to a significant other at home: No Do you presently have visiting nurse or other home services: No Alcohol intake: former Patient Tobacco Use Status: Former Tobacco user Tobacco use type: Cigarette Years Smoked: 20 service: No Current occupational status: employed Physical Exam Vital Signs: BMI result Body Mass Index 34.1 Telehealth Telehealth Telehealth Platform: Telephone Location of provider rendering services: practice address Location of patient: address on file Patient Identification confirmed using: Name, : Yes Telehealth method: voice only Patient verbally consented to treatment: Yes Patient verbally consented to billing insurance company: Yes Patient informed of any privacy concerns related to visit: Yes Minutes spent on Phone/Video with Pt.: 15 Assessment & Plan Assessment & Plan (1) Obesity: Code(s): E66.9 - Obesity, unspecified Category: Medical (2) Status post laparoscopic sleeve gastrectomy: Code(s): Z98.84 - Bariatric surgery status Category: Surgical (3) Hypoglycemia after GI (gastrointestinal) surgery: Code(s): K91.2 - Postsurgical malabsorption, not elsewhere classified Category: Medical Plan Pt has done better with blood sugar control, however still not ideal especially for when she returns to work. She has deviated a bit from the meal plan I gave her above. She does not want to continue to follow with dietitian in [place] due to frequency of visits. I recommended she try Glucerna Hunger Smart shakes (15g protein, 14g carbs) and drink over 2 hours (emphasized this). She will let me know how she tolerates this. She will let me know when she is scheduled to return to work so we can discuss appropriate meal plan for her increase in activity. Will attempt to obtain recent [facility] records.
[2025-04-26 10:36] VITALS: BMI 34.1
--- OUTSIDE RECORDS SUMMARY | 2025-04-26 14:01 | XMS_ITS | Clinical Summary ---
Author Organization [facility] Address [address] [place] [address] Phone Care Team Providers Care Shelter Director Name Role Phone LexyJodeebianca Catherine ROBERTO Primary Care Prov ider Encounters Date Type Department Care Team Description 03/28/2025 Telephone [facility] Orthopedics & Sports Medicine [address] [place] [phone] Deepika Ferrara MD waiting WC auth 03/28/2025 Telephone [facility] Orthopedics & Sports Medicine [address] [place] [phone] Deepika Ferrara MD waiting [facility] records 03/25/2025 Orders Only [facility] [address] [place] [address] Self-Referred, Patient Acute pain of right knee (Primary Dx) 03/25/2025 Orders Only [facility] [address] [place] [address] Self-Referred, Patient Acute right-sided low back pain, [...] topic Medical Devices Not on file Insurance [facility] [employer] Care Teams Shelter Director Relationship Specialty Start Date End Date Waqas Pugh FNP [address] [place] [address] PCP - General Nurse Practitioner 07/27/24 Additional Source Comments The information contained in this document represents components of the legal health record. It is not the complete legal health record.[facility]
--- OUTSIDE RECORDS SUMMARY | 2025-04-26 14:01 | XMS_ITS | Encounter Summary ---
Author Organization [facility] Address [address] [place] [address] Phone Care Team Providers Care Head Of Physics Name Role Phone LexyJodeeor Florin MEJIA Primary Care Prov ider Reason for Visit * Reason Onset Date Comments waiting [facility] records 03/28/2025 Encounter Details Date Type Department Care Team ([facility] Contact Info) Description 03/28/2025 Telephone [facility] Orthopedics & Sports Medicine [address] [place] [phone] Deepika Ferrara MD [address] [place] [address] Orthopedics & Sports Medicine, [place] [address] [email or web address] waiting [facility] records Social History Tobacco Use [...] 03/28/2025 3:05 PM EST Release faxed to [facility] for records. Once recd reschedule appt w/Dr Bush documented in this encounter Plan of Treatment Not on file documented as of this encounter Visit Diagnoses Not on filedocumented in this encounter Care Teams Head Of Physics Relationship Specialty Start Date End Date Waqas Pugh FNP [address] [place] [address] PCP - General Nurse Practitioner 07/27/24 documented as of this encounter Additional Source Comments The information contained in this document represents components of the legal health record. It is not the complete legal health record.[facility]
--- OUTSIDE RECORDS SUMMARY | 2025-04-26 14:01 | XMS_ITS | Encounter Summary ---
Author Organization [facility] Address [address] [place] [address] Phone Care Team Providers Care Product Delivery Specialist Name Role Phone LexyJodeebianca Catherine ROBERTO Primary Care Prov ider Reason for Visit * Reason Onset Date Comments waiting WC auth 03/28/2025 Encounter Details Date Type Department Care Team ([facility] Contact Info) Description 03/28/2025 Telephone [employer] (acquired by [employer] in 2014) [facility] Orthopedics & Sports Medicine [address] [place] [phone] Deepika Ferrara MD [address] [place] [address] Orthopedics & Sports Medicine, [facility] [place] [address] [email or web address] waiting WC auth Social History Tobacco Use [...] Name of Insurance Company: Brian Claim Number: [id number] Broiler Manager: Munira Nick Adjusters Adjusters documented in this encounter Plan of Treatment Not on file documented as of this encounter Visit Diagnoses Not on filedocumented in this encounter Care Teams Product Delivery Specialist Relationship Specialty Start Date End Date Waqas Pugh FNP [address] [place] [address] PCP - General Nurse Practitioner 07/27/24 documented as of this encounter Additional Source Comments The information contained in this document represents components of the legal health record. It is not the complete legal health record.[facility]
--- OUTSIDE RECORDS SUMMARY | 2025-04-26 14:01 | XMS_ITS | Clinical Summary ---
Author Organization Patient Business Ser [facility] Address [address] [place] [address] Care Team Providers Care Tar Kettle Runner Name Role Phone Waqas Pugh NP Primary Care Provider [phone] Allergies Active Allergy Reactions Criticality Noted Date Comments Nsaids (Non-Steroidal Anti-I nflammatory Drug) 04/17/2025 Metoclopramide Hcl Anxiety Low 04/17/2025 Shellfish Derived 04/17/2025 Medications pantoprazole (PROTONIX) 40 mg EC tablet Take 1 tablet (40 mg total) by mouth 1 (one) time each day before breakfast. Do not crush, chew, or split. 30 each 5 05/20/19 26 Active sucralfate (CARAFATE) 1 gram tablet Take 1 tablet (1 g total) by mouth 4 (four) times a day (before meals and nightly) for 7 days. 28 each 5 04/26/20 25 Active simethicone (MYLICON,GAS-X) 180 mg capsule Take 1 capsule (180 mg total) by mouth every 6 (six) hours if needed for flatulence (gas pain/bloating) for up to 7 days. 28 capsule 5 04/26/20 25 Active Active Problems Problem Noted Date Diagnosed Date Intractable nausea and vomiting 04/17/2025 Encounters Date Type Department Care Team Description 04/18/2025 4:39 PM EST Anesthesia Event [facility] Endoscopy [address] [address] Huseyin Rojo DO 04/17/2025 10:42 AM EST - 04/19/2025 10:53 AM EST Hospital Encounter [facility] Medical Surgical Unit [address] [place] [address] Katherine Pearce MD Reid, MD Lucia Valdes Nermina, MD Jones, Christopher, MD Alam, MD [place] Intractable epigastric abdominal pain (Primary Dx); Intractable nausea and vomiting Discharge Disposition: Home or Self Care from Last 3 Months Surgical History Surgery Date Site/Laterality Comments BARIATRIC SURGERY CHOLECYSTECTOMY OOPHORECTOMY SECTION x3 Medical History Medical History Date Comments Hypoglycemia Anxiety Family History Medical History Relation Name Comments Colon cancer Brother Heart attack Father Breast cancer Maternal Grandmother Cancer Mother 3 dif kinds of cancer Relation Name Status Comments Brother Father Maternal Grandmother Mother Social History Tobacco Use Types Packs/Day Years Used Date Smoking Tobacco: Former Cigarettes Smokeless Tobacco: Never Tobacco Cessation:Counseling Given: Not Answered Alcohol Use Standard Drinks/Week Comments Never 0 (1 standard drink = 0.6 oz pur e alcohol) Interpersonal Safety Answer Date Record ed Physical Abuse Unrecognized value 04/17/2025 Verbal Abuse Unrecognized value 04/17/2025 Comments Unknown Sex and Gender Information Value Date Recorded Sex Assigned at Not on file Legal Sex Female 12:25 PM EDT Gender Identity Not on file Sexual Orientation Not on file Last Filed Vital Signs Vital Sign Reading Time Taken Comments Blood Pressure 102/79 04/19/2025 7:41 AM EST Pulse 78 04/19/2025 7:41 AM EST Temperature 36.4 C (97.5 F) 04/19/2025 7:41 AM EST Respiratory Rate 16 04/19/2025 7:41 AM EST Oxygen Saturation 100% 04/19/2025 7:41 AM EST Inhaled Oxygen Concentration - - Weight 93 kg (205 lb) 04/18/2025 4:01 PM EST Height 165.1 cm (5' 5 ) 04/18/2025 4:01 PM EST Body Mass Index 34.11 04/18/2025 4:01 PM EST Plan of Treatment Health Maintenance Due Date Last Done Comments Breast Cancer Screening 1985 Hepatitis B Vaccines (1 of 3 - 19+ 3-dose series) 10/22/2002 Cervical Cancer Screening: Pap Smear 10/22/2004 HPV Vaccines (1 - 3-dose SCDM series) 10/22/2010 Pneumococcal Vaccine: Pediatrics (0 to 5 Years) and At-Risk Patients (6 to 49 Years) (2 of 2 - PPSV23, PCV20, or PCV21) 06/13/2017 04/18/2017 Depression Screening 05/12/2024 COVID-19 Vaccine (3 - 2024- season) 2025 09/09/2020, 08/19/2020 Influenza Vaccine (#1) 2025 , 01/13/2020, 07/01/2018, Additional history exists HIV Screening 04/17/2025 Social Influencers of Health Screening 04/17/2025 Cholesterol Screening (Lipid Panel) 10/25/2029 10/25/2024, 10/25/2024, 11/26/2021, Additional history exists DTaP,Tdap,and Td Vaccines (3 - Td or Tdap) 09/06/2031 09/05/2021, 04/18/2017 RSV Immunization Adult Patients (1 - 1-dose 75+ series) 10/22/2058 Hepatitis C Screening Completed 12/14/2020 HIB Vaccines Aged Out No longer eligi ble based on patient's age to complete this topic Hepatitis A Vaccines Aged Out No long er eligible based on patient's age to complete this topic IPV Vaccines Aged Out No longer eligi ble based on patient's age to complete this topic MMR Vaccines Aged Out No longer eligi ble based on patient's age to complete this topic Meningococcal ACWY Vaccine Aged Out N o longer eligible based on patient's age to complete this topic Meningococcal B Vaccine Aged Out No l onger eligible based on patient's age to complete this topic RSV Immunization Patients Under 20 months Aged Out No longer eligible based on patient's age to complete this topic Varicella Vaccines Aged Out No longer eligible based on patient's age to complete this topic Goals Goal Patient Goal Type Associated Problems Recent Progress Patient-Stated? 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 Procedure Name Priority Date/Time Associated Diagnosis Comments MAGNESIUM Add-On 04/19/2025 7:19 AM EST CBC WITH AUTO DIFFERENTIAL Routine 04/19/2025 7:19 AM EST HEPATIC FUNCTION PANEL Routine 7:19 AM EST CBC AND DIFFERENTIAL Routine 04/19/2025 7:19 AM EST BASIC METABOLIC PANEL Routine 04/19/2025 7:19 AM EST POCT GLUCOSE BLOOD Routine 04/19/2025 6: 31 AM EST POCT GLUCOSE BLOOD Routine 04/19/2025 12 :50 AM EST ECG ANNOTATED 04/19/2025 POCT GLUCOSE BLOOD Routine 04/18/2025 8: 49 PM EST POCT GLUCOSE BLOOD Routine 04/18/2025 5: 48 PM EST EGD Routine 04/18/2025 4:52 PM EST Intractable epigastric abdominal pain POCT GLUCOSE BLOOD Routine 04/18/2025 11 :31 AM EST RESPIRATORY VIRUS PANEL MOLECULAR STUDY Routine 04/18/2025 8:51 AM EST POCT GLUCOSE BLOOD Routine 04/18/2025 6: 00 AM EST LACTATE Routine 04/18/2025 5:51 AM EST PHOSPHORUS Routine 04/18/2025 5:51 AM EST MAGNESIUM Routine 04/18/2025 5:51 AM EST COMPLETE BLOOD COUNT Routine 04/18/2025 5:51 AM EST BASIC METABOLIC PANEL Routine 04/18/2025 5:51 AM EST POCT GLUCOSE BLOOD Routine 04/18/2025 4: 56 AM EST POCT GLUCOSE BLOOD Routine 04/18/2025 12 :08 AM EST DRUG ABUSE SCREEN 8A PANEL, URINE STAT 04/17/2025 9:43 PM EST POCT GLUCOSE BLOOD Routine 04/17/2025 8: 25 PM EST [id number], RSV, FLU A AND B QUALITATIVE RT-PCR, INTERNAL LAB STAT 04/17/2025 5:06 PM EST TROPONIN I HIGH SENSITIVITY STAT 04/17/2025 2:[address] ABDOMEN PELVIS W CONTRAST STAT 04/17/2025 1:15 PM EST URINALYSIS WITH REFLEX MICROSCOPIC STAT 04/17/2025 12:28 PM EST URINALYSIS WITH REFLEX MICROSCOPIC STAT 04/17/2025 12:28 PM EST CBC WITH AUTO DIFFERENTIAL STAT 04/17/2025 11:05 AM EST HCG, SERUM, QUALITATIVE STAT 04/17/2025 11:05 AM EST CBC AND DIFFERENTIAL STAT 04/17/2025 11:05 AM EST LIPASE STAT 04/17/2025 11:05 AM EST COMPREHENSIVE METABOLIC PANEL STAT 04/17/2025 11:05 AM EST ECG 12-LEAD STAT 04/17/2025 10:51 AM EST from Last 3 Months Results * (ABNORMAL) CBC auto differential (04/19/2025 7:19 AM EST) Only the most recent of2 resultswithin the time period is included. [facility] WBC 5.6 4.8 - 10.8 K/[facility] LAB HEMETOLOGY METHOD 04/19/2025 8:05 AM EST [facility] RBC 3.70(L) 3.80 - 4.80 M/mcL LAB HEMETOLOGY METHOD 04/19/2025 8:[address] [facility] Hemoglobin 10.2(L) 11.5 - 16.0 g/dL LAB HEMETOLOGY METHOD 04/19/2025 8:[address] [facility] Hematocrit 31.3(L) 35.0 - 47.0 % LAB HEMETOLOGY METHOD 04/19/2025 8:[address] [facility] MCV 85.1 79.0 - 98.0 FL LAB HEMETOLOGY METHOD 04/19/2025 8:[address] [facility] MCH 27.7 27.0 - 32.0 pcg LAB HEMETOLOGY METHOD 04/19/2025 8:[address] [facility] MCHC 32.6 32.0 - 37.0 g/dL LAB HEMETOLOGY METHOD 04/19/2025 8:[address] [facility] RDW 14.9 11.0 - 15.0 % LAB HEMETOLOGY METHOD 04/19/2025 8:[address] [facility] Platelets 217 130 - 400 K/mcL LAB HEMETOLOGY METHOD 04/19/2025 8:[address] [facility] MPV 8.8 7.0 - 11.0 FL LAB HEMETOLOGY METHOD 04/19/2025 8:[address] [facility] NRBC 0.0 <1.0 % LAB HEMETOLOGY METHOD 04/19/2025 8:[address] [facility] NRBC Absolute 0.00 <0.10 K/mcL LAB HEMETOLOGY METHOD 04/19/2025 8:[address] [facility] Neutrophils Relative 49.4 % LAB HEMETOLOGY METHOD 04/19/2025 8:[address] [facility] Lymphocytes Relative 35.7 % LAB HEMETOLOGY METHOD 04/19/2025 8:[address] [facility] Monocytes Relative 9.5 % LAB HEMETOLOGY METHOD 04/19/2025 8:[address] [facility] Eosinophils Relative 4.5 % LAB HEMETOLOGY METHOD 04/19/2025 8:[address] [facility] Basophils Relative 0.4 % LAB HEMETOLOGY METHOD 04/19/2025 8:[address] [facility] Immature Granulocytes Relative 0.5 % LAB HEMETOLOGY METHOD 04/19/2025 8:[address] [facility] Neutrophils Absolute 2.74 1.50 - 7.00 K/mcL LAB HEMETOLOGY METHOD 04/19/2025 8:[address] [facility] Lymphocytes Absolute 1.98 1.00 - 5.00 K/mcL LAB HEMETOLOGY METHOD 04/19/2025 8:[address] [facility] Monocytes Absolute 0.53 0.20 - 1.00 K/mcL LAB HEMETOLOGY METHOD 04/19/2025 8:[address] [facility] Eosinophils Absolute 0.25 0.00 - 0.50 K/mcL LAB HEMETOLOGY METHOD 04/19/2025 8:[address] [facility] Basophils Absolute 0.02 0.00 - 0.20 K/mcL LAB HEMETOLOGY METHOD 04/19/2025 8:[address] [facility] Immature Granulocytes Absolute 0.03 0.00 - 0.03 K/mcL LAB HEMETOLOGY METHOD 04/19/2025 8:[address] [facility] Blood Venous blood specimen / Unknown Venipuncture / Unknown 04/19/2025 7:19 AM EST 04/19/2025 7:45 AM EST us Liliam [facility] LAB BLOOD ORDERABLES Final Result [facility] [address] [place] [address], [place] [phone] * Magnesium (04/19/2025 7:19 AM EST) Only the most recent of2 resultswithin the time period is included. [facility] Magnesium 1.9 1.9 - 2.6 mg/dL 04/19/2025 10:[address] [facility] Blood Venous blood specimen / Unknown Venipuncture / Unknown 04/19/2025 7:19 AM EST 04/19/2025 7:45 AM EST [facility] LAB BLOOD ORDERABLES Final Result [facility] [address] [place] [address], [place] [phone] * (ABNORMAL) Hepatic function panel (04/19/2025 7:19 AM EST) [facility] Total Protein 6.4 6.0 - 8.0 g/dL 04/19/2025 9:[address] [facility] Albumin 3.6 3.2 - 5.0 g/dL 04/19/2025 9:[address] [facility] Total Bilirubin 0.5 0.0 - 1.4 mg/dL 04/19/2025 9:[address] [facility] Bilirubin, Direct 0.2 0.0 - 0.3 mg/dL 04/19/2025 9:[address] [facility] Bilirubin, Indirect 0.3 0.0 - 1.1 mg/dL 04/19/2025 9:[address] [facility] ALT (SGPT) 87(H) 10 - 60 unit/L 04/19/2025 9:[address] [facility] AST (SGOT) 49(H) 10 - 42 unit/L 04/19/2025 9:[address] [facility] Alkaline Phosphatase 113 42 - 121 unit/L 04/19/2025 9:[address] [facility] Blood Venous blood specimen / Unknown Venipuncture / Unknown 04/19/2025 7:19 AM EST 04/19/2025 7:45 AM EST [facility] LAB BLOOD ORDERABLES Final Result [facility] [address] [place] [address], [place] [phone] * Basic metabolic panel (04/19/2025 7:19 AM EST) Only the most recent of2 resultswithin the time period is included. Sodium 139 133 - 145 mmol/L 04/19/2025 9:[address] [facility] Potassium 3.8 3.5 - 5.5 mmol/L 04/19/2025 9:[address] [facility] Chloride 104 96 - 110 mmol/L 04/19/2025 9:[address] [facility] CO2 26 21 - 32 mmol/L 04/19/2025 9:[address] [facility] Anion Gap 9 3 - 11 04/19/2025 9:[address] [facility] Glucose 97 70 - 100 mg/dL 04/19/2025 9:[address] [facility] BUN 10 5 - 25 mg/dL 04/19/2025 9:[address] [facility] Creatinine 0.97 0.50 - 1.10 mg/dL 04/19/2025 9:[address] [facility] eGFR 75 >=60 mL/min/1. 73m2 04/19/2025 9:[address] [facility] Comment:Calculation based on the Chronic Kidney Disease Epidemiology Collaboration (CKD-EPI) equation refit without adjustment for race. BUN/Creatinine Ratio 10.3 04/19/2025 9:00 AM EST [facility] Calcium 8.5 8.5 - 10.5 mg/dL 04/19/2025 9:00 AM EST [facility] Blood Venous blood specimen / Unknown Venipuncture / Unknown 04/19/2025 7:19 AM EST 04/19/2025 7:45 AM EST [facility] LAB BLOOD ORDERABLES Final Result Performing Organization Address City/[facility] [address]/ZIP Co de Phone Number [facility] [address] [place] [address], [place] [phone] * POCT Glucose, blood (04/19/2025 6:31 AM EST) Only the most recent of9 resultswithin the time period is included. [facility] Glucose POCT 85 70 - 100 mg/dL 04/19/2025 6:32 AM EST [facility] POCT Comment RN Notified 04/19/2025 6:32 AM EST [facility] Blood Capillary blood specimen / Unknown 04/19/2025 6:31 AM EST 04/19/2025 6:33 AM EST Raleigh Alvarenga MD LAB POINT OF CARE TE ST DOCKED DEVICE UNSOLICITED RESULTS Final Result [facility] [address] [place] [address], [place] [phone] * ECG-Annotated (04/19/2025) Provider Onbase ECG ORDERABLES Final Result * EGD Anesthesia - MAC; [facility] ENDOSCOPY (04/18/2025 4:52 PM EST) Anatomical Region Laterality Modality Endoscopy 04/18/2025 4:40 PM EST Impressions 04/18/2025 4:56 PM EST - Normal examined duodenum. 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 - Small hiatal hernia. - Bilious gastric fluid. - Normal esophagus. - No specimens collected. Recommendation: - Return patient [facility] for ongoing care. - I anticipate no further need for intervention. - Use Pepto-Bismol PO as directed PRN. - Advance diet as tolerated. Narrative 04/18/2025 4:56 PM EST [facility] GI Patient Name: Tatiana Rivers Procedure Date: 04/18/2025 4:40 PM Date of : 1985 Age: 39 Gender: Female Note Status: Finalized Attending MD: Edu Stratton MD, Procedure Date No Time: 04/18/2025 Procedure: Upper GI endoscopy Indications: Recent gastrointestinal bleeding, Status post gastric bypass Providers: Edu Stratton MD Referring MD: Edu Stratton MD Medicines: Monitored Anesthesia Care Complications: No immediate complications. Estimated blood loss: None. Estimated Blood Loss: Estimated blood loss: none. Procedure: Pre-Anesthesia Assessment: - Prior to the procedure, a History and Physical was performed, and patient medications and allergies were reviewed. The patient is competent. The risks and benefits of the procedure and the sedation options and risks were discussed with the patient. All questions were answered and informed consent was obtained. Patient identification and proposed procedure were verified by the physician, the nurse, the land surveyor manager and the video game repair technician in the pre-procedure area in the endoscopy suite. Mental Status Examination: alert and oriented. Airway Examination: normal oropharyngeal airway and neck mobility. Respiratory Examination: clear to auscultation. CV Examination: normal. Prophylactic Antibiotics: The patient does not require prophylactic antibiotics. Prior Anticoagulants: The patient has taken no anticoagulant or antiplatelet agents. ASA Grade Assessment: E - Emergency. After reviewing the risks and benefits, the patient was deemed in satisfactory condition to undergo the procedure. The anesthesia plan was to use monitored anesthesia care (MAC). Immediately prior to administration of medications, the patient was re-assessed for adequacy to receive sedatives. The heart rate, respiratory rate, oxygen saturations, blood pressure, adequacy of pulmonary ventilation, and response to care were monitored throughout the procedure. The physical status of the patient was re-assessed after the procedure. After obtaining informed consent, the endoscope was passed under direct vision. Throughout the procedure, the patient's blood pressure, pulse, and oxygen saturations were monitored continuously. The Endoscope was introduced through the mouth, and advanced to the third part of duodenum. The upper GI endoscopy was accomplished without difficulty. The patient tolerated the procedure well. Findings: The examined duodenum was normal. Evidence of a sleeve gastrectomy was found in the stomach. This was characterized by healthy appearing mucosa. A small hiatal hernia was present. Bilious fluid was found in the stomach. There is no endoscopic evidence of bleeding in the entire examined stomach. The esophagus was normal. Procedure Code(s): --- Professional --- 24528, Esophagogastroduodenoscopy, flexible, transoral; diagnostic, including collection of specimen(s) by brushing or washing, when performed (separate procedure) Diagnosis Code(s): --- Professional --- Z98.84, Bariatric surgery status K44.9, Diaphragmatic hernia without obstruction or gangrene K92.2, Gastrointestinal hemorrhage, unspecified CPT copyright 2020 [employer]. All rights reserved. The codes documented in this report are preliminary and upon certified social workers in health care review may be revised to meet current compliance requirements. Edu Stratton MD 04/18/2025 4:55:59 PM This report has been signed electronically.Edu Stratton MD Number of Addenda: 0 Note Initiated On: 04/18/2025 4:40 PM Scope In: Scope Out: Endoscopy Department at [facility] - [address] [place] [id number] Procedure Note Edu Stratton MD - 04/18/2025 [facility] GI Patient Name: Tatiana Rivers Procedure Date: 04/18/2025 4:40 PM Date of : 1985 Age: 39 Gender: Female Note Status: Finalized Attending MD: Edu Stratton MD, Procedure Date No Time: 04/18/2025 Procedure: Upper GI endoscopy Indications: Recent gastrointestinal bleeding, Status postgastric bypass Providers: Edu Stratton MD Referring MD: Edu Stratton MD Medicines: Monitored Anesthesia Care Complications: No immediate complications. Estimated blood loss:None. Estimated Blood Loss: Estimated blood loss: none. Procedure: Pre-Anesthesia Assessment: - Prior to the procedure, a History and Physicalwas performed, and patient medications and allergieswere reviewed. The patient is competent. The risks and benefits of the procedure and the sedation optionsand risks were discussed with the patient. Allquestions were answered and informed consent was obtained. Patient identification and proposed procedure were verified by the physician, the nurse, theanesthetist and the video game repair technician in the pre-procedure area in the endoscopy suite. Mental Status Examination: alertand oriented. Airway Examination: normal oropharyngeal airway and neck mobility. Respiratory Examination: clear to auscultation. CV Examination: normal. Prophylactic Antibiotics: The patient does notrequire prophylactic antibiotics. Prior Anticoagulants: The patient has taken no anticoagulant or antiplatelet agents. ASA Grade Assessment: E - Emergency. After reviewing the risks and benefits, the patient was deemed in satisfactory condition to undergo the procedure. The anesthesia plan was to use monitored anesthesia care (MAC). Immediately prior to administration of medications, the patient was re-assessed for adequacy to receive sedatives. The heart rate, respiratory rate, oxygen saturations, blood pressure, adequacy of pulmonary ventilation,and response to care were monitored throughout the procedure. The physical status of the patient was re-assessed after the procedure. After obtaining informed consent, the endoscope was passed under direct vision. Throughout theprocedure, the patient's blood pressure, pulse, and oxygen saturations were monitored continuously. TheEndoscope was introduced through the mouth, and advanced tothe third part of duodenum. The upper GI endoscopy was accomplished without difficulty. The patienttolerated the procedure well. Findings: The examined duodenum was normal. Evidence of a sleeve gastrectomy was found in the stomach. This was characterized by healthyappearing mucosa. A small hiatal hernia was present. Bilious fluid was found in the stomach. There is no endoscopic evidence of bleeding in the entire examined stomach. The esophagus was normal. Procedure Code(s): --- Professional --- 48391, Esophagogastroduodenoscopy, flexible, transoral; diagnostic, including collection of specimen(s) by brushing or washing, when performed (separate procedure) Diagnosis Code(s): --- Professional --- Z98.84, Bariatric surgery status K44.9, Diaphragmatic hernia without obstruction or gangrene K92.2, Gastrointestinal hemorrhage, unspecified CPT copyright 2020 [employer]. All rights reserved. The codes documented in this report are preliminary and upon certified social workers in health care reviewmay be revised to meet current compliance requirements. Edu Stratton MD 04/18/2025 4:55:59 PM This report has been signed electronically.Edu Stratton MD Number of Addenda: 0 Note Initiated On: 04/18/2025 4:40 PM Scope In: Scope Out: Endoscopy Department at [facility] - [address] [place] [id number] IMPRESSION: - Normal examined duodenum. 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 - Small hiatal hernia. - Bilious gastric fluid. - Normal esophagus. - No specimens collected. Recommendation: - [facility]. - I anticipate no further need for intervention. - Use Pepto-Bismol PO as directed PRN. - Advance diet as tolerated. Edu Stratton MD GI~PROCEDURE ORDERABLES Fin al Result * Respiratory virus panel molecular study (04/18/2025 8:51 AM EST) Adenovirus Detection by PCR Not Detected Not Detected LAB MICROBIOLOGY METHOD 04/18/2025 12:[address] [facility] Influenza A PCR Not Detected Not Detected LAB MICROBIOLOGY METHOD 04/18/2025 12:[address] [facility] Influenza B PCR Not Detected Not Detected LAB MICROBIOLOGY METHOD 04/18/2025 12:[address] [facility] Coronavirus 229E Not Detected Not Detected LAB MICROBIOLOGY METHOD 04/18/2025 12:[address] [facility] Coronavirus HKU1 Not Detected Not Detected LAB MICROBIOLOGY METHOD 04/18/2025 12:[address] [facility] Coronavirus OC43 Not Detected Not Detected LAB MICROBIOLOGY METHOD 04/18/2025 12:[address] [facility] Coronavirus NL63 Not Detected Not Detected LAB MICROBIOLOGY METHOD 04/18/2025 12:[address] [facility] Parainfluenza Virus 1 Not Detected Not Detected LAB MICROBIOLOGY METHOD 04/18/2025 12:[address] [facility] Parainfluenza Virus 2 Not Detected Not Detected LAB MICROBIOLOGY METHOD 04/18/2025 12:[address] [facility] Parainfluenza Virus 3 Not Detected Not Detected LAB MICROBIOLOGY METHOD 04/18/2025 12:[address] [facility] Parainfluenza Virus 4 Not Detected Not Detected LAB MICROBIOLOGY METHOD 04/18/2025 12:[address] [facility] RSV PCR Not Detected Not Detected LAB MICROBIOLOGY METHOD 04/18/2025 12:[address] [facility] Human Metapneumovirus A and B Not Detected Not Detected LAB MICROBIOLOGY METHOD 04/18/2025 12:[address] [facility] Rhinovirus/Entero virus Not Detected Not Detected LAB MICROBIOLOGY METHOD 04/18/2025 12:[address] [facility] Bordetella pertussis Not Detected Not Detected LAB MICROBIOLOGY METHOD 04/18/2025 12:[address] [facility] Bordetella parapertussis Not Detected Not Detected LAB MICROBIOLOGY METHOD 04/18/2025 12:[address] [facility] Mycoplasma pneumo by PCR Not Detected Not Detected LAB MICROBIOLOGY METHOD 04/18/2025 12:[address] [facility] Chlamydia pneumoniae Not Detected Not Detected LAB MICROBIOLOGY METHOD 04/18/2025 12:[address] [facility] SARS COV-2 Not Detected Not Detected LAB MICROBIOLOGY METHOD 04/18/2025 12:[address] [facility] Swab Both anterior nares / Unknown Non-blood Collection / Unknown 04/18/2025 8:51 AM EST 04/18/2025 10:[address] [facility] [facility] - 04/18/2025 12:00 PM EST Testing was performed using the [employer] Respiratory Pathogen PCR Assay. All results must be correlated with the clinical findings. Results should not be used as the sole basis for diagnosis. False Negative results may occur from the presence of sequence variants in the region targeted by the assay or the presence of inhibitors. Results may be affected by concurrent antiviral/antimicrobial therapy or levels of organisms that are below the limit of detection. us Aileen SUN LAB MICROBIOLOGY - GENERAL O RDERABLES Final Result [facility] [address] [place] [address], * (ABNORMAL) Complete blood count (04/18/2025 5:51 AM EST) WBC 8.5 4.8 - 10.8 K/mcL LAB HEMETOLOGY METHOD 04/18/2025 7:[address] [facility] RBC 3.60(L) 3.80 - 4.80 M/mcL LAB HEMETOLOGY METHOD 04/18/2025 7:[address] [facility] Hemoglobin 9.8(L) 11.5 - 16.0 g/dL LAB HEMETOLOGY METHOD 04/18/2025 7:[address] [facility] Hematocrit 30.3(L) 35.0 - 47.0 % LAB HEMETOLOGY METHOD 04/18/2025 7:[address] [facility] MCV 84.2 79.0 - 98.0 FL LAB HEMETOLOGY METHOD 04/18/2025 7:[address] [facility] MCH 27.2 27.0 - 32.0 pcg LAB HEMETOLOGY METHOD 04/18/2025 7:[address] [facility] MCHC 32.3 32.0 - 37.0 g/dL LAB HEMETOLOGY METHOD 04/18/2025 7:[address] [facility] RDW 14.4 11.0 - 15.0 % LAB HEMETOLOGY METHOD 04/18/2025 7:00 AM EST [facility] Platelets 209 130 - 400 K/mcL LAB HEMETOLOGY METHOD 04/18/2025 7:[address] [facility] MPV 8.5 7.0 - 11.0 FL LAB HEMETOLOGY METHOD 04/18/2025 7:00 AM EST [facility] NRBC 0.0 <1.0 % LAB HEMETOLOGY METHOD 04/18/2025 7:[address] [facility] NRBC Absolute 0.00 <0.10 K/mcL LAB HEMETOLOGY METHOD 04/18/2025 7:[address] [facility] Blood Venous blood specimen / Unknown Venipuncture / Unknown 04/18/2025 5:51 AM EST 04/18/2025 6:39 AM EST us Aileen SUN LAB BLOOD ORDERABLES Final R esult [facility] [address] [place] [address], [place] [phone] * Phosphorus (04/18/2025 5:51 AM EST) Phosphorus 3.4 2.5 - 4.5 mg/dL 04/18/2025 7:51 AM EST [facility] Blood Venous blood specimen / Unknown Venipuncture / Unknown 04/18/2025 5:51 AM EST 04/18/2025 6:39 AM EST Aileen SUN LAB BLOOD ORDERABLES Final R esult [facility] [address] [place] [address], [place] [phone] * Lactate (04/18/2025 5:51 AM EST) Lactate 0.6 0.4 - 2.0 mmol/L 04/18/2025 7:[address] [facility] Blood Venous blood specimen / Unknown Venipuncture / Unknown 04/18/2025 5:51 AM EST 04/18/2025 6:35 AM EST us Aileen SUN LAB BLOOD ORDERABLES Final R esult [facility] [address] [place] [address], * (ABNORMAL) Drug abuse screen 8a panel, urine (04/17/2025 9:43 PM EST) Pathologist [facility] Amphetamine Screen, Ur Negative Negative 04/18/2025 12:[address] [facility] Comment:Certain OTC medicati ons containing ephedrine, phenylephrine, pseudoephedrine and phenylpropanolamine can cause false positive results. Barbiturate Screen, Ur Negative Negative 04/18/2025 12:[address] [facility] Benzodiazepine Screen, Ur Negative Negative 04/18/2025 12:[address] [facility] Cocaine Screen, Ur Negative Negative 2024 12:[address] [facility] Opiate Screen, Ur Positive(A ) Negative 04/18/2025 12:[address] [facility] Cannabinoid (THC) Screen, Ur Negative Negative 04/18/2025 12:[address] [facility] Comment:Specimens from patie nts taking pantoprazole sodium (Protonix) have been shown to produce false positive results. Oxycodone Screen, Ur Negative Negative 12/2024 12:[address] [facility] Fentanyl, Ur Negative Negative 04/18/2025 12:[address] [facility] Urine Urine specimen obtained by clean catch procedure / Unknown Non-blood Collection / Unknown 04/17/2025 9:43 PM EST 04/17/2025 11:33 PM EST Narrative [facility] - 04/18/2025 12:04 AM EST Assay cutoffs: Amphetamines 1000 ng/mL Barbiturates 200 ng/mL Benzodiazepines 200 ng/mL Cocaine 300 ng/mL Fentanyl 1 ng/mL Opiates 300 ng/mL Oxycodone 100 ng/mL THC 50 ng/mL Semi-quantitative assay for screening purposes only. Unconfirmed screening result should not be used for non-medical purposes. *ALTERNATE METHOD CONFIRMATION DONE UPON REQUEST ONLY* us Mena Myers MD LAB URINE ORDERABLES Final Res ult [facility] [address] [place] [address], [place] [phone] * [id number], RSV, Influenza A and B qualitative RT-PCR (04/17/2025 5:06 PM EST) Influenza A PCR Not Detected Not Detected LAB MICROBIOLOGY METHOD 04/17/2025 6:20 PM EST [facility] Influenza B PCR Not Detected Not Detected LAB MICROBIOLOGY METHOD 04/17/2025 6:20 PM EST [facility] RSV PCR Not Detected Not Detected LAB MICROBIOLOGY METHOD 04/17/2025 6:20 PM EST [facility] SARS COV-2 Not Detected Not Detected LAB MICROBIOLOGY METHOD 04/17/2025 6:20 PM EST [facility] Swab Both anterior nares / Unknown Non-blood Collection / Unknown 04/17/2025 5:06 PM EST 04/17/2025 5:13 PM EST us Katherine Pearce MD LAB MICROBIOLOGY - GENERAL ORDERABLES Final Result Performing Organization Address City/[facility] [address]/ZIP Co de Phone Number [facility] [address] [place] [address], [place] [phone] * Troponin I High Sensitivity (04/17/2025 2:09 PM EST) High Sensitivity Troponin I <3 <=34 ng/L 04/17/2025 2:56 PM EST [facility] Blood Venous blood specimen / Unknown Venipuncture / Unknown 04/17/2025 2:09 PM EST 04/17/2025 2:14 PM EST us Katherine Pearce MD LAB BLOOD ORDERABLES Final Result [facility] [address] [place] [address], [place] [phone] * CT Abdomen Pelvis w Contrast (04/17/2025 1:15 PM EST) Anatomical Region Laterality Modality Body Computed Tomogra phy 04/17/2025 1:27 PM EST Impressions 04/17/2025 1:34 PM EST No acute findings in the abdomen/pelvis. -------- FINAL REPORT -------- Dictated By: MAXIMILIANO LUAN Dictated Date: 04/17/2025 13:27 ET Assigned Physician: MAXIMILIANO LUNA Reviewed and Electronically Signed By: MAXIMILIANO LUNA Signed Date: 04/17/2025 13:34 ET Workstation ID: [id number] Transcribed By: Self Edit Transcribed Date: 04/17/2025 13:27 ET Narrative 04/17/2025 1:34 PM EST PROCEDURE: CT ABDOMEN/PELVIS INDICATION: Pain TECHNIQUE: CT of the abdomen and pelvis following the intravenous administration of 90cc Isovue 370. Multiplanar reformats. The examination was performed utilizing dose reduction techniques. Total DLP 1116 COMPARISON: No priors available. FINDINGS: LOWER THORAX: Lung bases are clear. Small hiatal hernia. HEPATOBILIARY: Hepatic steatosis. Cholecystectomy. No biliary duct dilatation. Pneumobilia indicative of prior sphincterotomy. SPLEEN: No splenomegaly. PANCREAS: No focal mass or ductal dilatation. ADRENALS: No nodules. KIDNEYS/URETERS: No hydronephrosis, stones, or solid mass. PELVIC ORGANS/BLADDER: Uterus, adnexal structures, and bladder are within normal limits. PERITONEUM / RETROPERITONEUM: Trace pelvic free fluid, likely physiologic. No fluid collection or free intraperitoneal air. VESSELS: Portal vein is patent. Abdominal aorta is normal in size. GI TRACT: No bowel obstruction or wall thickening. Sleeve gastrectomy. Normal appendix. BONES AND SOFT TISSUES: Advanced facet arthritis at L4-5 bilaterally. No acute fracture. Soft tissues are normal. Procedure Note Maximiliano Luna MD - 04/17/2025 PROCEDURE: CT ABDOMEN/PELVIS INDICATION: Pain TECHNIQUE: CT of the abdomen and pelvis following the intravenousadministration of 90cc Isovue 370. Multiplanar reformats. The examinationwas performed utilizing dose reduction techniques. Total DLP 1116 COMPARISON: No priors available. FINDINGS: LOWER THORAX: Lung bases are clear. Small hiatal hernia. HEPATOBILIARY: Hepatic steatosis. Cholecystectomy. No biliary ductdilatation. Pneumobilia indicative of prior sphincterotomy. SPLEEN: No splenomegaly. PANCREAS: No focal mass or ductal dilatation. ADRENALS: No nodules. KIDNEYS/URETERS: No hydronephrosis, stones, or solid mass. PELVIC ORGANS/BLADDER: Uterus, adnexal structures, and bladder are withinnormal limits. PERITONEUM / RETROPERITONEUM: Trace pelvic free fluid, likely physiologic.No fluid collection or free intraperitoneal air. VESSELS: Portal vein is patent. Abdominal aorta is normal in size. GI TRACT: No bowel obstruction or wall thickening. Sleeve gastrectomy.Normal appendix. BONES AND SOFT TISSUES: Advanced facet arthritis at L4-5 bilaterally. Noacute fracture. Soft tissues are normal. IMPRESSION: No acute findings in the abdomen/pelvis. -------- FINAL REPORT -------- Dictated By: MAXIMILIANO LUNA Dictated Date: 04/17/2025 13:27 ET Assigned Physician: MAXIMILIANO LUNA Reviewed and Electronically Signed By: MAXIMILIANO LUNA Signed Date: 04/17/2025 13:34 ET Workstation ID: [id number] Transcribed By: Self Edit Transcribed Date: 04/17/2025 13:27 ET us Katherine Pearce MD IMG CT PROCEDURES Final Res ult * Urinalysis with reflex microscopic (04/17/2025 12:28 PM EST) Specific [place] Urine 1.022 1.003 - 1.030 LAB URINALYSIS - AUTOMATED METHOD 04/17/2025 12:[address] [facility] pH, Urine 6.0 5.0 - 8.0 pH LAB URINALYSIS - AUTOMATED METHOD 04/17/2025 12:[address] [facility] Leukocytes, Urine Negative Negative LAB URINALYSIS - AUTOMATED METHOD 04/17/2025 12:[address] [facility] Nitrite, Urine Negative Negative LAB URINALYSIS - AUTOMATED METHOD 04/17/2025 12:[address] [facility] Protein, Urine Negative <=Trace mg/dL LAB URINALYSIS - AUTOMATED METHOD 04/17/2025 12:[address] [facility] Glucose, Urine Negative Negative mg/dL LAB URINALYSIS - AUTOMATED METHOD 04/17/2025 12:[address] [facility] Ketones, Urine Negative Negative mg/dL LAB URINALYSIS - AUTOMATED METHOD 04/17/2025 12:[address] [facility] Urobilinogen, Urine 1.0 0.2 - 1.0 mg/dL LAB URINALYSIS - AUTOMATED METHOD 04/17/2025 12:[address] [facility] Bilirubin, Urine Negative Negative LAB URINALYSIS - AUTOMATED METHOD 04/17/2025 12:[address] [facility] Blood, Urine Negative Negative LAB URINALYSIS - AUTOMATED METHOD 04/17/2025 12:[address] [facility] Urine Urine specimen obtained by clean catch procedure / Unknown Non-blood Collection / Unknown 04/17/2025 12:28 PM EST 04/17/2025 12:35 PM EST Katherine Pearce MD LAB URINE ORDERABLES Final Result [facility] [address] [place] [address], [place] [phone] * hCG, serum, qualitative (04/17/2025 11:05 AM EST) [facility] hCG Qual Negative Negative 04/17/2025 12:02 PM EST [facility] Blood Venous blood specimen / Unknown Venipuncture / Unknown 04/17/2025 11:05 AM EST 04/17/2025 11:37 AM EST us Katherine Pearce MD LAB BLOOD ORDERABLES Final Result Performing Organization Address [facility] [address]/ZIP Co de Phone Number [facility] [address] [place] [address], [place] [phone] * Lipase (04/17/2025 11:05 AM EST) [facility] Lipase 36 12 - 53 unit/L 04/17/2025 12:[address] [facility] Blood Venous blood specimen / Unknown Venipuncture / Unknown 04/17/2025 11:05 AM EST 04/17/2025 11:37 AM EST us Katherine Pearce MD LAB BLOOD ORDERABLES Final Result Performing Organization Address [facility] [address]/ZIP Co de Phone Number [facility] [address] [place] [address], [place] [phone] * (ABNORMAL) Comprehensive Metabolic Panel (CMP) (04/17/2025 11:05 AM EST) [facility] Sodium 137 133 - 145 mmol/L 04/17/2025 12:[address] [facility] Potassium 4.1 3.5 - 5.5 mmol/L 04/17/2025 12:[address] [facility] Chloride 104 96 - 110 mmol/L 04/17/2025 12:[address] [facility] CO2 25 21 - 32 mmol/L 04/17/2025 12:[address] [facility] Anion Gap 8 3 - 11 04/17/2025 12:[address] [facility] Glucose 75 70 - 100 mg/dL 04/17/2025 12:[address] [facility] BUN 11 5 - 25 mg/dL 04/17/2025 12:[address] [facility] Creatinine 0.92 0.50 - 1.10 mg/dL 04/17/2025 12:[address] [facility] eGFR 80 >=60 mL/min/1. 73m2 04/17/2025 12:[address] [facility] Comment:Calculation based on the Chronic Kidney Disease Epidemiology Collaboration (CKD-EPI) equation refit without adjustment for race. BUN/Creatinine Ratio 12.0 04/17/2025 12:[address] [facility] Calcium 8.8 8.5 - 10.5 mg/dL 04/17/2025 12:04 [facility] AST (SGOT) 93(H) 10 - 42 unit/L 04/17/2025 12:04 [facility] ALT (SGPT) 35 10 - 60 unit/L 04/17/2025 12:[address] [facility] Alkaline Phosphatase 101 42 - 121 unit/L 04/17/2025 12:[address] [facility] Total Protein 7.0 6.0 - 8.0 g/dL 04/17/2025 12:[address] [facility] Albumin 4.3 3.2 - 5.0 g/dL 04/17/2025 12:04 [facility] Total Bilirubin 0.8 0.0 - 1.4 mg/dL 04/17/2025 12:[address] [facility] Blood Venous blood specimen / Unknown Venipuncture / Unknown 04/17/2025 11:05 AM EST 04/17/2025 11:37 AM EST Katherine Pearce MD LAB BLOOD ORDERABLES Final Result Performing Organization Address [facility] [address]/ZIP Co de Phone Number [facility] [address] [address], * 12-Lead ECG (04/17/2025 10:51 AM EST) Ventricular Rate ECG 69 BPM GEMUSE Atrial Rate 69 BPM GEMUSE P-R Interval 166 ms GEMUSE QRS Duration 74 ms GEMUSE Q-T Interval 380 ms GEMUSE QTc 407 ms GEMUSE P Wave [place] 57 degrees GEMUSE R [place] 33 degrees GEMUSE T [place] 37 degrees GEMUSE ECG Interpretation Normal sinus rhythm with sinus arrhythmia Normal ECG No previous ECGs available Confirmed by Marcell KUMAR, LUIS M ([id number]) on 04/17/2025 6:02:23 PM GEMUSE 04/17/2025 10:5 1 AM EST 04/17/2025 6:02 PM EST Katherine Pearce MD ECG ORDERABLES Final Resul t Performing Organization Address City/[facility] [address]/[facility] Co de Phone Number GEMUSE from Last 3 Months Additional Health Concerns Active Problems Noted Date Diagnosed Date Autogenerated Problem 04/18/2025 Infection Onset Date Last Indicated Gastrointestinal Rule-Out 04/17/20252024 Insurance [facility] [place] Advance Directives * Full Code - Default (Latest Code Status on File) Date Activated Date Inactivated Comments 04/17/2025 6:59 PM 04/19/2025 1:21 PM This is orde r is used when code status has not been discussed with the patient, or code status is otherwise unknown/unconfirmed To update the patient's code status, place a code status order. Do not modify or discontinue any currently active code status orders. Care Teams [employer] Relationship Specialty Start Date End Date Waqas Pugh NP [address] [place] [address] PCP - General Nurse Practitioner 04/17/25
== END 2025-04-26 11:01 | disposition home or self-care (01) ==
LOC: HO.HBS 10:50
PROVIDERS: PCP Nurse Practitioner Family; Visit Provider Physician Assistant Surgical
DX: E66.811 Obesity, class 1 (principal); Z68.34 Body mass index [BMI] 34.0-34.9, adult; K91.2 Postsurgical malabsorption, not elsewhere classified; Z90.3 Acquired absence of stomach [part of]; Z98.84 Bariatric surgery status
CPT/HCPCS: 99213